=== PATIENT | male | born 1945 | race Caucasian/White ===

== ENCOUNTER 2024-11-29 07:39 | Outpatient (CLI) | payer OTHER, SELFPAY ==
--- OUTSIDE RECORDS SUMMARY | 2024-11-01 13:45 | XMS_ITS | Encounter Summary ---
Author Organization [facility] Address [address] [place] [address] Care Team Providers Care Iron Erector Name Role Phone Unavailable Primary Care Provider Unavailabl e Reason for Referral * Outpatient (Routine) - Authorized Specialty Diagnoses / Procedures Referred By Rafael menchaca Referred To Contact Ophthalmology Liu Noonan M.D. [address] [place] [phone] Phone: tel: fax: [facility] Referral ID Status Reason Start Date Expiration Date V isits Requested Visits Authorized [id number] Authorized 11/01/2024 05/03/2026 1 1 Scheduling Instructions [facility] return in about 4-6 months Reason for Visit * Outpatient (Routine) - Closed Specialty Diagnoses / Procedures Referred By Rafael menchaca Referred To Contact Ophthalmology Liu Noonan M.D. [address] [place] [phone] Phone: tel: fax: [facility] Referral ID Status Reason Start Date Expiration Date Visits Re quested Visits Authorized [id number] Closed 08/16/2024 02/15/2026 1 1 Encounter Details Date Type Department Care Team (Latest Contact Info) Description 11/01/2024 1:45 PM CDT Office Visit Department of Ophthalmology in [place], [place] [address] [place] [phone] Liu Noonan M.D. 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 - 11/01/2024 1:45 PM CDT # ABMD, both eyes Status post debridement, left eye (09/09/2024) Doing well. # pseudophakia, both eyes Dr. 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 Kraft Rtn 4-6 mo documented in this encounter Plan of Treatment Scheduled Referrals Name Type Priority Associated Diagnoses Order Schedule Ophthalmology office visit (clinic): Self; General Outpatient Referral Routine Expected: 03/04/2025 (Approximate), Expires: 02/01/2026 documented as of this encounter Visit Diagnoses Diagnosis Other Hereditary Corneal Dystrophies Bilateral- Primary documented in this encounter
--- OUTSIDE RECORDS SUMMARY | 2024-11-01 13:45 | XMS_ITS | Encounter Summary ---
Author Organization [facility] Address [address] [place] [address] Care Team Providers Care Cotton Picker Operator Name Role Phone Unavailable Primary Care Provider Unavailabl e Reason for Referral * Outpatient (Routine) - Authorized Specialty Diagnoses / Procedures Referred By Rafael menchaca Referred To Contact Ophthalmology Liu Noonan M.D. [address] [place] [phone] Phone: tel: fax: [facility] Referral ID Status Reason Start Date Expiration Date V isits Requested Visits Authorized [id number] Authorized 11/01/2024 05/03/2026 1 1 Scheduling Instructions [facility] return in about 4-6 months Reason for Visit * Outpatient (Routine) - Closed Specialty Diagnoses / Procedures Referred By Rafael menchaca Referred To Contact Ophthalmology Liu Noonan M.D. [address] [place] [phone] Phone: tel: fax: [facility] Referral ID Status Reason Start Date Expiration Date Visits Re quested Visits Authorized [id number] Closed 08/16/2024 02/15/2026 1 1 Encounter Details Date Type Department Care Team (Latest Contact Info) Description 11/01/2024 1:45 PM CDT Office Visit Department of Ophthalmology in [place], [place] [address] [place] [phone] Liu Noonan M.D. 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 - 11/01/2024 1:45 PM CDT # ABMD, both eyes Status post debridement, left eye (09/09/2024) Doing well. # pseudophakia, both eyes Dr. 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
--- OUTSIDE RECORDS SUMMARY | 2024-11-18 11:25 | XMS_ITS | Encounter Summary ---
Author Organization [facility] Address [address] [place] [address] Care Team Providers Care Supervisor Assembling Name Role Phone Unavailable Primary Care Provider Unavailabl e Encounter Details Date Type Department Care Team (Latest Contact Info) Description 11/18/2024 11:25 AM CDT - 11/18/2024 11:59 PM CDT Hospital Encounter Department of Laboratory Medicine in [place], [place] [address] [place] [phone] Alyson Drake P.A.-C., M.S. 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 07/24/2019 amLODIPine (NORVASC) 5 mg tablet 5 mg daily. 04/07/2021 ammonium lactate (AMLACTIN) 12 % cream as needed. 04/19/[address] tablet Take 81 mg by mouth daily. 06/11/2019 atorvastatin (LIPITOR) 40 mg tablet 40 mg daily. 04/15/2020 carboxymethylcel lulose (REFRESH PLUS) 0.5 % ophthalmic solution Administer 2 drops into both eyes 4 (four) times a day as needed. cephalexin (KEFLEX) 500 mg capsule 05/18/2021 clopidogreL (PLAVIX) 75 mg tablet 12/01/2020 hydroCHLOROthiaz greer (HYDRODIURIL) 25 mg tablet 04/15/2020 hydrOXYzine (ATARAX) 50 mg tablet 11/14/2021 levoFLOXacin (LEVAQUIN) 500 mg tablet 11/12/2020 lisinopriL (PRINIVIL,ZESTRI L) 40 mg tablet 40 mg daily. 04/15/2020 metoprolol succinate (TOPROL-XL) 25 mg 24 hr tablet 25 mg daily. 03/07/2022 pantoprazole (PROTONIX) 40 mg EC tablet 40 mg daily. 03/07/2022 phenazopyridine (PYRIDIUM) 100 mg tablet Take 1-2 tablets (100-200 mg total) by mouth 3 (three) times a day as needed for painful urination. 30 tablet 05/26/2021 polyethylene glycol-electroly froy (GaviLyte-G) 236-22.74-6.74 -5.86 gram solution 08/23/2023 polyethylene glycol-electroly froy (NULYTELY) 420 gram solution 10/07/2021 polymyxin B-trimethoprim (Polytrim) 10,000 unit- 1 mg/mL ophthalmic solution Administer 1 drop into the left eye 4 (four) times a day. sars-cov-2, COVID-19 - MODERNA, vaccine 10/16/2021 sennosides (SENOKOT) 8.6 mg tablet Take 8.6-17.2 mg by mouth. 10/22/2020 sodium chloride (CHOLO-128) 5 % ophthalmic ointment Apply 1 strip to affected eye(s) as needed. tamsulosin (FLOMAX) 0.4 mg 24 hr capsule Take 1 capsule (0.4 mg total) by mouth daily. 30 capsule 1 05/11/2021 traMADoL (ULTRAM) 50 mg tablet 11/14/2021 traMADoL (Ultram) 50 mg tabletIndication s:Acute Pain Take 1 tablet (50 mg total) by mouth every 6 (six) hours as needed for pain Indications: Acute Pain. 10 tablet 09/09/2024 documented as of this encounter Plan of Treatment Not on file documented as of this encounter Procedures Procedure Name Priority Date/Time Associated Diagnosis Comments PROSTATE-SPECIFIC AG (PSA) DIAGNOSTIC, S Routine 11/18/2024 11:31 AM CDT Primary Malignant Neoplasm Of Prostate (HCC) documented in this encounter Results * PSA (Prostate-Specific Antigen), Diagnostic (11/18/2024 11:31 AM CDT) Prostate-Specific Ag 0.17 <=6.5 ng/mL 11/18/2024 1:55 PM CDT OWAT Comment: ----ADDITIONAL INFORMATION---- The testing method is an electrochemiluminescence assay manufactured by [employer] and performed on the Modular or Addison system. Values obtained with different assay methods or kits may be different and cannot be used interchangeably. Test results cannot be interpreted as absolute evidence for the presence or absence of malignant disease. Blood (Blood, Venous) 11/18/2024 11:31 AM CDT 11/18/2024 1:15 PM CDT Alyson Drake P.A.-C., M.S. LAB BLOOD ADD-ON Final Result [facility] [address] [place] [address], [place] OWAT [facility] in [place] [address] [place] [address] documented in this encounter Visit Diagnoses Diagnosis Primary Malignant Neoplasm Of Prostate (HCC) documented in this encounter
--- OUTSIDE RECORDS SUMMARY | 2024-11-18 11:25 | XMS_ITS | Encounter Summary ---
Author Organization [facility] Address [address] [place] [address] Care Team Providers Care Auricular Acupuncturist Name Role Phone Unavailable Primary Care Provider Unavailabl e Encounter Details Date Type Department Care Team (Latest Contact Info) Description 11/18/2024 11:25 AM CDT - 11/18/2024 11:59 PM CDT Hospital Encounter Department of Laboratory Medicine in [place], [place] [address] [place] [phone] Alyson Drake P.A.-C., M.S. 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 LAB BLOOD ADD-ON Final Result [facility] [address] [place] [address], [place] OWAT [facility] in [place] [address] [place] [address] documented in this encounter Visit Diagnoses Diagnosis Primary Malignant Neoplasm Of Prostate (HCC) documented in this encounter
--- OUTSIDE RECORDS SUMMARY | 2024-11-29 07:51 | XMS_ITS | Continuity of Care Document ---
Author Name [facility] Organization [facility] Care Team Providers Care Correspondence Transcriber Name Role Phone [facility] Unavailable Unavailable Medications Combined list of outpatient medications from Department of Defense and Veterans Affairs facilities.Medications provided include 1) outpatient medications from the last 15 months, and 2) patient-reported medications. Medication Details Route Status Patient Instructions Prescription Expires Prescription Number Last Dispense Date Ordering Provider Order Date Order Qty Source CLOPIDOGREL (CLOPIDOGRE L BISULFATE), 75 MG, TABLET, ORAL, [facility], 500 ea. BOTTLE Active [id number] 4 2023 90 Pharmac y Data Transac tion Service Facilit y METOPROLOL SUCCINATE (metoprolol succinate), 50 MG, TAB ER 24H, ORAL, [facility], 500 ea. BOTTLE Active [id number] 4 2023 90 Pharmac y Data Transac tion Service Facilit y PREDNISOLON E ACETATE (PREDNISOLO NE ACETATE), 1%, DROPS SUSP, OPHTHALMIC, [facility]E [facility], 5 ml DROP BTL Active [id number] 4 2023 10 Pharmac y Data Transac tion Service Facilit y Immunizations Combined list of available immunizations from the Department of Defense and Veterans Affairs facilities. Immunization Series Date Given Administered By Site Reaction Lot Number CVX Code Drug Health Care Legal Assistant Status Comments Source COVID-19, mRNA, LNP-S, PF, 100 mcg or 50 mcg dose 2021 LALITA GOMES () Not Given COVID-19, mRNA, LNP-S, PF, 100 mcg or 50 mcg dose DoD Social History Combined list of available smoking, tobacco, and other social history from Department of Defense and Veterans Affairs facilities. Social History Type Response Date Comment Sour e This section is an empty social history section. DoD
--- OUTSIDE RECORDS SUMMARY | 2024-11-29 07:51 | XMS_ITS | Continuity of Care Document ---
Author Name [facility] Organization [facility] Care Team Providers Care Chart Snatcher Name Role Phone [facility] Unavailable Unavailable Medications Combined list of outpatient [...] ORAL, [facility], 500 ea. BOTTLE Active [id number] 4 2023 90 Pharmac y Data Transac tion Service Facilit y METOPROLOL SUCCINATE (metoprolol succinate), 50 MG, TAB ER 24H, ORAL, [facility], 500 ea. BOTTLE Active [id number] 4 2023 90 Pharmac y Data Transac tion Service Facilit y PREDNISOLON E ACETATE (PREDNISOLO NE ACETATE), 1%, DROPS SUSP, OPHTHALMIC, MANE [facility]ARM, 5 ml DROP BTL Active [id number] 4 2023 10 Pharmac y Data Transac tion Service Facilit y Immunizations Combined list of available immunizations from the Department of Defense and Veterans Affairs facilities. Immunization Series Date Given Administered By Site Reaction Lot Number CVX Code Drug Industrial Psychology Professor Status Comments Source COVID-19, mRNA, LNP-S, PF, [...]
--- OUTSIDE RECORDS SUMMARY | 2024-11-29 07:51 | XMS_ITS | Continuity of Care Document ---
Author Name [facility] Organization [facility] Care Team Providers Care Roll Forming Supervisor Name Role Phone [facility] Unavailable Unavailable Medications Combined list of outpatient [...] ORAL, [facility], 500 ea. BOTTLE Active [id number] 4 2023 90 Pharmac y Data Transac tion Service Facilit y METOPROLOL SUCCINATE (metoprolol succinate), 50 MG, TAB ER 24H, ORAL, [facility], 500 ea. BOTTLE Active [id number] 4 2023 90 Pharmac y Data Transac tion Service Facilit y PREDNISOLON E ACETATE (PREDNISOLO NE ACETATE), 1%, DROPS SUSP, OPHTHALMIC, MANE PHARM, 5 ml DROP BTL Active [id number] 4 2023 10 Pharmac y Data Transac tion Service Facilit y Immunizations Combined list of available immunizations from the Department of Defense and Veterans Affairs facilities. Immunization Series Date Given Administered By Site Reaction Lot Number CVX Code Drug Camp Advisor Status Comments Source COVID-19, mRNA, LNP-S, PF, [...]
--- OUTSIDE RECORDS SUMMARY | 2024-11-29 07:51 | XMS_ITS | Continuity of Care Document ---
Author Name [facility] Organization [facility] Care Team Providers Care Rental Agent Name Role Phone [facility] Unavailable Unavailable Medications Combined list of outpatient [...] ORAL, AUROBINDO PHARM, 500 ea. BOTTLE Active [id number] 4 2023 90 Pharmac y Data Transac tion Service Facilit y METOPROLOL SUCCINATE (metoprolol succinate), 50 MG, TAB ER 24H, ORAL, [facility], 500 ea. BOTTLE Active [id number] 4 2023 90 Pharmac y Data Transac tion Service Facilit y PREDNISOLON E ACETATE (PREDNISOLO NE ACETATE), 1%, DROPS SUSP, OPHTHALMIC, MANE PHARM, 5 ml DROP BTL Active [id number] 4 2023 10 Pharmac y Data Transac tion Service Facilit y Immunizations Combined list of available immunizations from the Department of Defense and Veterans Affairs facilities. Immunization Series Date Given Administered By Site Reaction Lot Number CVX Code Drug Kiln Operator Helper Status Comments Source COVID-19, mRNA, LNP-S, PF, [...]
--- OUTSIDE RECORDS SUMMARY | 2024-11-29 07:51 | XMS_ITS | Continuity of Care Document ---
Author Name [facility] Organization [facility] Care Team Providers Care Publications Editor Name Role Phone [facility] Unavailable Unavailable Medications Combined list of outpatient [...] ORAL, [facility]UROB[facility]O PHARM, 500 ea. BOTTLE Active [id number] 4 2023 90 Pharmac y Data Transac tion Service Facilit y METOPROLOL SUCCINATE (metoprolol succinate), 50 MG, TAB ER 24H, ORAL, [facility], 500 ea. BOTTLE Active [id number] 4 2023 90 Pharmac y Data Transac tion Service Facilit y PREDNISOLON E ACETATE (PREDNISOLO NE ACETATE), 1%, DROPS SUSP, OPHTHALMIC, MANE PHARM, 5 ml DROP BTL Active [id number] 4 2023 10 Pharmac y Data Transac tion Service Facilit y Immunizations Combined list of available immunizations from the Department of Defense and Veterans Affairs facilities. Immunization Series Date Given Administered By Site Reaction Lot Number CVX Code Drug Insole Coverer Status Comments Source COVID-19, mRNA, LNP-S, PF, [...]
--- OUTSIDE RECORDS SUMMARY | 2024-11-29 07:56 | XMS_ITS | CCD ---
Author Name Interface, [id number] lity Address [address] [place] [address] [facility] Address [address] [place] [address] Care Team Providers Care Home Companion Name Role Phone Hernandez Mckeon Unavailable Unavailable Reason for Visit NEW PT CONSULT 60 MIN Social History Date Name Value Sex Male
--- OUTSIDE RECORDS SUMMARY | 2024-11-29 07:56 | XMS_ITS | Clinical Summary ---
Author Organization [facility] Address [address] [place] [address] Care Team Providers Care Shellfish Manager Name Role Phone Unavailable Primary Care Provider Unavailabl e Source Comments Patient records contain information from all sites at [facility]. For routine questions regarding patient records, call [phone] during business hours, M-F 8:00 AM - 5:00 PM Central Time. Record requests for emergency care only can be directed to [phone] at any time.[facility] Allergies Active Allergy Reactions Criticality Noted Date Comments 2-Ethylhexyl Acrylate Other (see comments) 10/03 Sulfa (Sulfonamide Antibiotics) Itching,Rash Medications acetaminophen (TYLENOL) 325 mg tablet Take 650 mg by mouth as needed. 0 Active amLODIPine (NORVASC) 5 mg tablet 5 mg daily. 1 Active aspirin [address] tablet Take 81 mg by mouth daily. 0 Active atorvastatin (LIPITOR) 40 mg tablet 40 mg daily. 0 Active carboxymethylce llulose (REFRESH PLUS) 0.5 % ophthalmic solution Administer 2 drops into both eyes 4 (four) times a day as needed. Active hydroCHLOROthia zide (HYDRODIURIL) 25 mg tablet 0 Active clopidogreL (PLAVIX) 75 mg tablet 1 Active levoFLOXacin (LEVAQUIN) 500 mg tablet 1 Active lisinopriL (PRINIVIL,ZESTR IL) 40 mg tablet 40 mg daily. 0 Active sodium chloride (CHOLO-128) 5 % ophthalmic ointment Apply 1 strip to affected eye(s) as needed. Active sennosides (SENOKOT) 8.6 mg tablet Take 8.6-17.2 mg by mouth. 1 Active ammonium lactate (AMLACTIN) 12 % cream as needed. 1 Active tamsulosin (FLOMAX) 0.4 mg 24 hr capsule Take 1 capsule (0.4 mg total) by mouth daily. 30 capsule 1 1 Active phenazopyridine (PYRIDIUM) 100 mg tablet Take 1-2 tablets (100-200 mg total) by mouth 3 (three) times a day as needed for painful urination. 30 tablet 1 Active sars-cov-2, COVID-19 - MODERNA, vaccine 2 Active hydrOXYzine (ATARAX) 50 mg tablet 2 Active metoprolol succinate (TOPROL-XL) 25 mg 24 hr tablet 25 mg daily. 2 Active pantoprazole (PROTONIX) 40 mg EC tablet 40 mg daily. 2 Active polyethylene glycol-electrol ytes (NULYTELY) 420 gram solution 2 Active traMADoL (ULTRAM) 50 mg tablet 2 Active cephalexin (KEFLEX) 500 mg capsule 1 Active polyethylene glycol-electrol ytes (GaviLyte-G) 236-22.74-6.74 -5.86 gram solution 4 Active polymyxin B-trimethoprim (Polytrim) 10,000 unit- 1 mg/mL ophthalmic solution Administer 1 drop into the left eye 4 (four) times a day. Active traMADoL (Ultram) 50 mg tabletIndicatio ns:Acute Pain Take 1 tablet (50 mg total) by mouth every 6 (six) hours as needed for pain Indications: Acute Pain. 10 tablet 5 Active Active Problems Problem Noted Date Diagnosed Date Primary Malignant Neoplasm Of Prostate 1 Cancer Staging:Clinical stage from 02/11/2021:Stage IIB(cT1c, cN0, cM0, PSA: 4.8, Grade Group: 2) - Unsigned Encounters Date Type Department Care Team Description 11/19/2024 Results Follow-Up Department of Radiation Oncology in [address] [address] Milo Del Castillo R.N. PSA (Prostate-Specific Antigen), Diagnostic 11/18/2024 11:25 AM CDT - 11/18/2024 11:59 PM CDT Hospital Encounter Department of Laboratory Medicine [address] [place] [address] Alyson Drake P.A.-C., M.S. Primary Malignant Neoplasm Of Prostate (HCC) Discharge Disposition: Home or Self Care 11/01/2024 1:45 PM CDT Office Visit Department of Ophthalmology in [address] [address] Liu Noonan M.D. Other Hereditary Corneal Dystrophies Bilateral (Primary Dx) 09/20/2024 Documentation Department of Ophthalmology in [address] [address] Liu Noonan M.D. 09/20/2024 Clinical Communication Department of Ophthalmology in [address] [address] Liu Noonan M.D. 09/13/2024 1:45 PM CDT Office Visit Department of Ophthalmology in [address] [address] Liu Noonan M.D. Other Hereditary Corneal Dystrophies Bilateral (Primary Dx) 09/10/2024 10:00 AM CDT Office Visit Department of Ophthalmology in [address] [address] Liu Noonan M.D. Other Hereditary Corneal Dystrophies Bilateral (Primary Dx) 09/09/2024 11:15 AM CDT Office Visit Department of Ophthalmology in [address] [address] Liu Noonan M.D. 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 Social History Tobacco Use Types Packs/Day Years Used Date Smoking Tobacco: Former Cigarettes Q uit: 2010 Smokeless Tobacco: Never Tobacco Cessation:Counseling Given: Not Answered Sex and Gender Information Value Date Recorded Sex Assigned at Not on file Legal Sex Male 11:15 AM LIGHTING ADVISER Gender Identity Not on file Sexual Orientation Not on file Last Filed Vital Signs Vital Sign Reading Time Taken Comments Blood Pressure 125/42 05/20/2024 3:24 PM LIGHTING ADVISER Pulse 83 05/20/2024 3:24 PM LIGHTING ADVISER Temperature 36.5 C (97.7 F) 05/20/2024 3:24 PM LIGHTING ADVISER Respiratory Rate - - Oxygen Saturation - - Inhaled Oxygen Concentration - - Weight 97.5 kg (214 lb 15.2 oz) 05/20/2024 3:24 PM LIGHTING ADVISER Height - - Body Mass Index - - Plan of Treatment Health Maintenance Due Date Last Done Comments Hepatitis C Screening 1945 Zoster Vaccines (2 of 3) 06/22/2011 04/27/2011 RSV vaccine - (32-36 weeks) or 60+ years (1 - 1-dose 75+ series) 2021 DTaP,Tdap,and Td Vaccines (2 - Td or Tdap) 04/10/2024 04/10/2014, 06/16/2003 Depression Screening (Annual PHQ-2) 06/05/2024 Fall Risk Screen (Annual) 06/05/2024 Creatinine Level (Kidney Function Test) 09/16/2025 09/16/2024, 09/16/2024, 06/14/2024, Additional history exists Potassium Level 09/16/2025 09/16/2024, 06/05, 06/12/2024, Additional history exists Sodium Level 09/16/2025 09/16/2024, 06/05, 06/12/2024, Additional history exists Pneumococcal vaccine (50+ years) Completed 04/13/2015, 04/27/2011 Colonoscopy Discontinued 10/16/2023, 12/01/2021 Colorectal Cancer Screening Discontinued Influenza Vaccine Completed 03/21/2024, , 04/05/2022, Additional history exists COVID-19 Vaccine Completed 09/24/2024, , 09/07/2023, Additional history exists CT Colonography Discontinued Cologuard Discontinued FIT Discontinued HPV Vaccines Aged Out No longer eligi ble based on patient's age to complete this topic IPV Vaccines Aged Out No longer eligi ble based on patient's age to complete this topic Medical Devices Implanted Type Area Import/Export Clerk Device Identifier Shelf Expiration Date Model / Serial / Lot Cardiac Other Cardiac Other N/A: Heart Description:Pacemaker Vascular Stent Vascular Stent Right: Groin Vascular Stent Vascular Stent N/A: Abdomen Procedures Procedure Name Priority Date/Time Associated Diagnosis Comments PROSTATE-SPECIFIC AG (PSA) DIAGNOSTIC, S Routine 11/18/2024 11:31 AM CDT Primary Malignant Neoplasm Of Prostate (HCC) REMOVE CORNEAL EPITHELIUM - OS - LEFT EYE Routine 09/09/2024 11:30 AM CDT Other Hereditary Corneal Dystrophies Bilateral from Last 3 Months Results * PSA (Prostate-Specific Antigen), Diagnostic (11/18/2024 [...] P.A.-C., M.S. LAB BLOOD ADD-ON Final Result [facility] [address] [place] [address], [facility] in [place] [address] [place] [address] * Remove Corneal Epithelium - OS - Left Eye (09/09/2024 11:30 AM CDT) Narrative OPHTHALMOLGY NON-IMAGING ORDERS - 09/09/2024 11:30 AM CDT Confirmed correct patient, procedure, site, and patient consented. Notes The correct procedure and laterality were confirmed. After placement of a lid speculum, the central 8-9 mm of corneal epithelium were debrided with a 64 blade at the slit lamp. Redundant basement membrane was peeled with forceps. The corneal stroma was polished with WeckCell sponges. An Air Optix N&D 8.6 contact lens soaked in Polytrim solution was placed. The patient tolerated the procedure well. us Liu Noonan M.D. OPH CLINIC PROCEDURES Edit ed Result - Final [facility] OPHTHALMOLGY NON-IMAGING ORDERS from Last 3 Months Insurance MEDICARE [employer]
--- OUTSIDE RECORDS SUMMARY | 2024-11-29 07:56 | XMS_ITS ---
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 Past Treatment and Therapy Plans No past plan information found. Past Radiation Episodes * IMRT: ProstateOverview* First Treatment Date Last Treatment Date Treatment Site Technique Goal Episode Provider 05/03/2021 05/31/2021 Prostate IMRT Curative * Linked Problems Primary Malignant Neoplasm O f Prostate Treatment Courses* Course 1x Prostate 05/03/2021 - 05/31/2021 Treatment Period Fraction Dose Fractions Total Dose Plans Planned F1 prostate 05/03/2021 - 05/31/2021 300 cGy 20 / 20 6,000 cGy Reference Points Delivered [id number] 05/03/2021 - 05/31/2021 6,000 cGy
--- OUTSIDE RECORDS SUMMARY | 2024-11-29 07:56 | XMS_ITS | Encounter Summary ---
Author Organization [facility] Address [address] [place] [address] Care Team Providers Care Public Welfare Worker Name Role Phone Unavailable Primary Care Provider Unavailabl e Encounter Details Date Type Department Care Team (Latest Contact Info) Description 09/20/2024 Clinical Communication Department of Ophthalmology in [place], [place] [address] [place] [address] Liu Noonan M.D. 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
--- OUTSIDE RECORDS SUMMARY | 2024-11-29 07:56 | XMS_ITS | Clinical Summary ---
Author Organization [facility] Address [address] [facility] [place] [address] Care Team Providers Care Motorcycle Deliverer Name Role Phone Satish Issa Primary Care Provider [phone] Allergies Active Allergy Reactions Criticality Noted Date Comments Sulfa Antibiotics Itching,Rash Low 06/06/2006 Medications acetaminophen (TYLENOL) 650 MG CR tablet Take 650 mg by mouth every 8 hours as needed 10/22/2022 Active clopidogrel (PLAVIX) 75 MG tablet Take 75 mg by mouth daily 09/14/2023 Active atorvastatin (LIPITOR) 40 MG tablet Take 40 mg by mouth daily 03/07/2023 Active pantoprazole (PROTONIX) 40 MG EC tablet Take 40 mg by mouth 2 times daily 03/07/2022 Active metoprolol succinate ER (TOPROL XL) 50 MG 24 hr tablet Take 1 tablet by mouth daily 11/09/2022 Active amLODIPine (NORVASC) 5 MG tablet Take 1 tablet by mouth daily 03/07/2023 Active lisinopril (ZESTRIL) 40 MG tablet Take 1 tablet by mouth daily 03/07/2023 Active sodium chloride (CHOLO 128) 5 % ophthalmic ointment Apply 1 strip to eye 2 times daily Active carboxymethylcel lulose (CARBOXYMETHYLCE LLULOSE SODIUM) 0.5 % SOLN ophthalmic solution Place 2 drops into both eyes daily as needed Active aspirin 81 MG EC tablet Take 81 mg by mouth daily Active prednisoLONE acetate (PRED FORTE) 1 % ophthalmic suspension Place 1 drop into both eyes daily Active Active Problems No known active problems Social History Tobacco Use Types Packs/Day Years Used Date Smoking Tobacco: Former Cigarettes Smokeless Tobacco: Never Tobacco Cessation:Counseling Given: Not Answered Comments:Quit 2009 Alcohol Use Standard Drinks/Week Comments Yes 0 (1 standard drink = 0.6 oz pure alcohol) 8-10 drinks per week. None in past month. Adolescent Education Answer Date Record ed Getting School Help Needed Not on file 10/15 Sex and Gender Information Value Date Recorded Sex Assigned at Not on file Legal Sex Male 12:46 PM CDT Gender Identity Not on file Sexual Orientation Not on file Last Filed Vital Signs Vital Sign Reading Time Taken Comments Blood Pressure 133/48 10/16/2023 10:30 AM CDT Pulse 61 10/16/2023 10:30 AM CDT Temperature 36 C (96.8 F) 10/16/2023 9:44 AM CDT Respiratory Rate 18 10/16/2023 7:59 AM CDT Oxygen Saturation 97% 10/16/2023 10:30 AM CDT Inhaled Oxygen Concentration - - Weight 93.5 kg (206 lb 3.2 oz) 10/16/2023 7:59 A M CDT Height - - Body Mass Index - - Plan of Treatment Health Maintenance Due Date Last Done Comments ADVANCE CARE PLANNING 1945 ANNUAL REVIEW OF HM ORDERS 1945 DIABETES SCREENING 1945 LIPID 1945 FALL RISK ASSESSMENT 2011 ZOSTER VACCINE (2 of 3) 06/22/2011 04/27/2011 RSV VACCINE (1 - 1-dose 75+ series) 2021 MEDICARE ANNUAL WELLNESS VISIT 04/07/2022 04/07/2021, 04/15/2020 COVID-19 VACCINE ( season) 2024 09/07/2023, 03/30/2023, 03/16/2022, Additional history exists DTAP/TDAP/TD VACCINE (2 - Td or Tdap) 04/10/2024 04/10/2014, 06/16/2003 PHQ-2 (once per calendar year) 2024 LUNG CANCER SCREENING 11/20/2024 11/21/2023 , 06/12/2019, 04/30/2019 INFLUENZA VACCINE (Season Ended) 2025 05/26/2023, 04/05/2022, 03/04/2021, Additional history exists HEPATITIS C SCREENING Completed 06/24/2013 PNEUMOCOCCAL VACCINE 50+ YEARS Completed 04/13/2015, 04/27/2011 HPV VACCINE Aged Out No longer eligi ble based on patient's age to complete this topic MENINGITIS VACCINE Aged Out No longer eligible based on patient's age to complete this topic Insurance MEDICARE / MEDICARE / Care Teams Motorcycle Deliverer Relationship Specialty Start Date End Date Satish Issa [address] [place] [address] PCP - General Family Medicine 10/16/23
--- OUTSIDE RECORDS SUMMARY | 2024-11-29 07:56 | XMS_ITS | Encounter Summary ---
Author Organization [facility] Address [address] [place] [address] Care Team Providers Care Ortho Rn Name Role Phone Unavailable Primary Care Provider Unavailabl e Encounter Details Date Type Department Care Team (Late st Contact Info) Description 11/19/2024 Results Follow-Up Department of Radiation Oncology in [place], [place] [address] [place] [phone] Milo Del Castillo, R.N. 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
--- OUTSIDE RECORDS SUMMARY | 2024-11-29 07:56 | XMS_ITS | Clinical Summary ---
Author Organization [facility] Address [address] [place] [id number] Care Team Providers Care Printed Circuit [employer] Panels Deburrer Name Role Phone Satish Issa MD Primary Care Provider Lucinda Toure MD Unavailable [phone] Ирина Monreal NP Unavailable Maria De Jesus Adorno RN, BSN Unavailable Unavailab Mundo Palmer MD Unavailable [phone] Allergies Active Allergy Reactions Criticality Noted Date Comments 2-Ethylhexyl Acrylate *Unknown 10/13/2007 Other reaction(s): Other (see comments) Sulfa (Sulfonamide Antibiotics) Rash,Itching 06/06/2006 Medications carboxymethylcell ulose 0.5% 0.5 % drop ophthalmic drops Place 1-2 Drops into both eyes every 2 hours if needed for Dry Eyes. Active aspirin (ECOTRIN) 81 mg enteric coated tablet Take 81 mg by mouth with dinner. 0 0 Active amLODIPine (NORVASC) 10 mg tabletIndications :HTN (hypertension) Take 1 Tablet (10 mg) by mouth once daily. 90 Tablet 3 4 Active atorvastatin (LIPITOR) 40 mg tabletIndications :Cardiovascular symptoms Take 1 Tablet (40 mg) by mouth once daily with evening meal. 90 Tablet 3 4 Active lisinopriL (PRINIVIL; ZESTRIL) 40 mg tabletIndications :Essential hypertension Take 1 Tablet (40 mg) by mouth once daily. 90 Tablet 3 4 Active metoprolol succinate (TOPROL XL) 50 mg sustained-release tabletIndications :Cardiovascular symptoms,Arterios clerotic heart disease Take 1 Tablet (50 mg) by mouth once daily. 90 Tablet 4 4 Active pantoprazole (PROTONIX) 40 mg delayed-release tabletIndications :Duodenal ulcer Take 1 Tablet (40 mg) by mouth once daily before a meal. 90 Tablet 3 4 Active sodium chloride (CHOLO 128 OPHT) Place 1 Drop into the eye(s) three times daily. Active Active Problems Problem Noted Date Diagnosed Date Atrioventricular block, complete 04/09/2024 ISABEL (acute kidney injury) 11/14/2023 Primary cancer of right upper lobe of lung 05/18 Cancer Staging:Pathologic stage from 05/15/2023:Stage IA2(pT1b, pN0, cM0) - Signed by Stormy Valencia PA on 05/18/2023 Primary cancer of right lower lobe of lung 05/18 Cancer Staging:Pathologic stage from 05/15/2023:Stage IA1(pT1a, pN0, cM0) - Signed by Stormy Valencia PA on 05/18/2023 S/P right upper lobe and lower lobe wedge resect ion 05/15/2023 Overview (05/15/2023): S/P right upper lobe and lower lobe wedge resection and lymphadenectomy with Dr. Rodarte at [facility] on 05/15/23. 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 11/27/2020 PVD (peripheral vascular disease) 08/16/2019 Iron deficiency 08/16/2019 Lower GI bleed 08/16/2019 Melena 08/16/2019 Acute blood loss anemia 08/03/2019 Acute upper GI bleeding 08/03/2019 Acute renal failure superimp osed on stage 3 chronic kidney disease 08/03/2019 Leukocytosis 07/23/2019 AV block, Mobitz 1 04/23/2019 Duodenal ulcer 04/23/2019 Alcohol use 2019 Pleural effusion on right 2019 Anemia 2019 Acute on chronic renal failure 2019 Peripheral vascular disease 09/18/2018 PAD (peripheral artery disease) 09/18/2018 Overview (09/20/2018): S/p left common femoral endarterectomy and left femoral to above-knee popliteal artery bypass using 8 mm ringed PTFE on 09/18. 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 Tobacco use disorder 10/13/2007 Rheumatic heart disease, unspecified 09/30/2006 Overview (09/30/2006): aortic insufficiency moderate on echo 2006 CLL (chronic lymphocytic leukemia) Pacemaker Resolved Problems Problem Noted Date Diagnosed Date Resolved Date Hypotension 09/18/2018 07/23/2019 Unspecified essential hypertension 10/13/2007 01/24/2012 MGUS (monoclonal gammopathy of unknown significance) 07/23/2019 Encounters Date Type Department Care Team Description 11/29/2024 8:00 AM CDT Ancillary Procedure [facility] [address] [place] [address] Arrived 11/21/2024 11:30 AM CDT Office Visit [facility] [address] [place] [address] Martir Madera MD CV Vascular Est (1 year follow up; lower extremity PAD. U/S scheduled prior. ) 11/21/2024 9:42 AM CDT - 11/21/2024 11:59 PM CDT Hospital Encounter [facility] [address] [place] [address] Martir Madera MD Leistner, Joseph S, R.T. (ARRT) PAD (peripheral artery disease) 11/21/2024 Travel 11/15/2024 Telephone [facility] [address] [facility] [address] [facility] [place] [address] Chio Benjamin MD Appointment Request (Lab) 10/08/2024 Telephone [facility] [address] [place] [address] Martir Madera MD Follow Up 10/03/2024 9:53 AM CDT - 10/03/2024 11:59 PM CDT Hospital Encounter [facility] [address] [facility] [place] [address] Iron deficiency anemia due to chronic blood loss (Primary Dx) 10/03/2024 Travel 10/01/2024 Hospital/[facility] Telephone Encounter [facility] [address] [place] [address] Moraima Espinoza RN Pre Procedure (PVP) 09/27/2024 11:49 AM CDT - 09/27/2024 11:59 PM CDT Hospital Encounter [facility] [address] [facility] [place] [address] Iron deficiency anemia due to chronic blood loss (Primary Dx) 09/27/2024 Travel 09/20/2024 Hospital/[facility] Telephone Encounter [facility] [address] [facility] [address] Caryl Sepulveda RN Pre Procedure 09/19/2024 1:30 PM CDT Office Visit [facility] [address] [facility] [place] [address] Lucinda Toure MD Follow Up 09/19/[address] [facility] [address] [facility] [place] [address] [facility] Cancer Appointment 09/19/2024 Travel 09/16/2024 10:03 AM CDT - 09/16/2024 11:59 PM CDT Hospital Encounter [facility] [address] [place] [address] Ирина Monreal, STACKER AND SORTER OPERATOR Iron deficiency anemia due to chronic blood loss [D50.0]; Primary cancer of right upper lobe of lung (HC) 09/16/2024 10:03 AM CDT - 09/16/2024 11:59 PM CDT Hospital Encounter [facility] [address] [place] [address] Iron deficiency anemia due to chronic blood loss [D50.0]; MGUS (monoclonal gammopathy of unknown significance); Primary cancer of right upper lobe of lung (HC) 09/16/2024 Travel from Last 3 Months Immunizations Immunization Administration Dates Next Due COVID-19 vaccine (Moderna 100mcg/0.5mL) PF, MDV 08/15/2020,07/18/2020 Influenza A (H1N1), Inactiva ross (Age >=3 Years) 06/15/2009 Influenza, High-dose Inactivated 018,03/31/2016,04/13/2015,2013 Influenza, IIV3 (Age >=3 years) 05/07/20 13,02/15/2012,04/27/2011,2009,05/07/2009 Influenza, Inactivated AIIV4 (Age 65+ Years) Preserv Free 04/05/2022,03/04/2021,03/11/2020 Influenza, Inactivated IIV3 (Age 65+ Years) Preserv Free 04/23/2019,04/12/2017 Pneumococcal Poly,23-Valent (Pneumovax) 04/27/2011 Pneumococcal conj 13-Valent (Prevnar 13) 04/13/2015 Td (Age >=7 Years) 06/14/2003 Tdap 04/10/2014 Zoster (Zostavax-ZVL, live) 04/27/2011 Family History Medical History Relation Name Comments Hypertension Brother 1 Cancer-colon Brother 2 Diabetes Brother 3 Cancer Father esophageal canc er Diabetes Father Cancer-colon Mother ? OVARIAN Heart Disease Mother ASCVD Other Mother COPD Relation Name Status Comments Brother 1 Brother 2 Brother 3 Father Mother Social History Tobacco Use Types Packs/Day Years Used Date Smoking Tobacco: Former Cigarettes 0.8 35 0 09/03/1974 - 09/03/2009 Passive Smoke Exposure: Past Smokeless Tobacco: Never Tobacco Cessation:Counseling Given: Not Answered Alcohol Use Standard Drinks/Week Comments Yes 8 (1 standard drink = 0.6 oz pur e alcohol) Very occ PHQ-2 Answer Date Recorded PHQ-2 TOTAL SCORE 5 04/09/2024 Social Connections Answer Date Recorded Do you often feel lonely or isolated from those around you? 0 11/14/2023 Financial Resource Strain Answer Date R ecorded Difficulty of Paying Living Expenses 3 11/14/2023 Difficulty of Paying Living Expenses Not on file 11/14/2023 Food Insecurity Answer Date Recorded Do you worry your food will run out before you are able to buy more? 1 11/14/2023 Transportation Needs Answer Date Record ed Does lack of transportation keep you from medica l appointments? 1 11/14/2023 Does lack of transportation keep you from work, meetings or getting things that you need? 1 11/14/2023 Housing Stability Answer Date Recorded What is your housing situation today? 1 11/14/2023 Interpersonal Safety Answer Date Record ed Are you being hit, kicked, p ushed or yelled at (see row info)? No 06/14/2024 Interpersonal Safety Abuse 12 - 18 Not on file 06/14/2024 Interpersonal Safety Ambulatory Vulnerability No t on file 06/14/2024 Utilities Answer Date Recorded Do you have trouble paying f or utilities (for example, heat, electricity, water, phone)? 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 Gender Identity Not on file Sexual Orientation Not on file Occupation Industry Job Start Date Job End Date Not on file Not on file Not on file Not on file Obstetrics History Last Filed Vital Signs Vital Sign Reading Time Taken Comments Blood Pressure 157/81 11/21/2024 11:12 AM CDT Pulse 60 11/21/2024 11:12 AM CDT Temperature 36.9 C (98.4 F) 10/03/2024 9:58 AM CDT Respiratory Rate 18 10/03/2024 9:58 AM CDT Oxygen Saturation 97% 11/21/2024 11: 12 AM CDT Inhaled Oxygen Concentration - - Weight 92.9 kg (204 lb 11.2 oz) 025 11:12 AM CDT Height 180.3 cm (5' 10.98) 11/21/2024 11:12 AM CDT Body Mass Index 28.56 11/21/2024 11:12 AM CDT Plan of Treatment Upcoming Encounters Date Type Department Care Team (Late st Contact Info) Description 11/29/2024 8:00 AM CDT Ancillary Procedure [facility] [address] [place] [address] Arrived 12/12/2024 11:15 AM CDT Office Visit [address] [address] Chio Benjamin MD [address] [place] [address] 12/12/2024 12:00 PM CDT Appointment [facility] [address] [place] [address] 12/17/2024 12:45 PM CDT Office Visit [facility] [address] [place] [address] Ирина Monreal, STACKER AND SORTER OPERATOR [address] [place] [address] 03/12/2025 1:15 PM CDT Cardiac Device Check [facility] [address] [place] [address] Health Maintenance Due Date Last Done Comments Zoster (shingles) series for age 50+ (1 of 2) 06/22/2011 04/27/2011 RSV vaccine for adults or (1 - 1-dose 75+ series) 2021 Tetanus booster 04/10/2024 04/10/2014, 06/14/2003 COVID-19 vaccine series ( season) 2024 09/24/2024, 03/21/2024, 09/07/2023, Additional history exists Influenza Vaccine (Season Ended) 2025 04/05/2022, 03/04/2021, 03/11/2020, Additional history exists Depression screening for age 12+ 04/09/2025 04/09/2024, 04/28/2023, 04/26/2023, Additional history exists Medicare Wellness for age 65+ 04/10/2025 04/09/2024, 04/07/2021, 04/15/2020, Additional history exists Low Dose CT (for lung CA) age 50-80 09/16/2025 09/16/2024, 03/11/2024, 11/21/2023, Additional history exists BMI (ht and wt on same day) for age 18+ 11/21/2025 11/21/2024, 06/10/2024, 05/09/2024, Additional history exists Hepatitis C screening for age 18-79 Completed 06/24/2013 Tdap Completed 04/10/2014 Pneumococcal series for age 50+ Completed 04/13/2015, 04/27/2011 Hepatitis B series for 19+ Aged Out N o longer eligible based on patient's age to complete this topic Medical Devices Implanted Type Area Black And White Printer Operator Device Identifier Shelf Expiration Date Model / Serial / Lot Graft Vasc 8mm 40cm Propaten Thin Wall Removable Ring - [id number] Implanted:Qty: 1 on 09/18/2018 by Martir Madera MD at [facility] Cv Implants Left: Femoral Artery [employer] 12/12/2021 [id number]# / [id number] / Graft Vasc [id number] Hem[employer] - [id number] Implanted:Qty: 1 on 11/30/2020 by Martir Madera MD at [facility] Grafts Right: Femoral Artery [employer] 04/04/2025 [id number] / [id number] / [id number] Tissue Pericardium 0.8x8cm Xenosure - [id number] Implanted:Qty: 1 on 07/23/2019 by Martir Madera MD at [facility] Right: Femoral Artery [employer] 01/30/2025 [id number]# / / Procedures Procedure Name Priority Date/Time Associated Diagnosis Comments US ARTERIAL LOWER EXTREMITY W LIZANDRO BILATERAL Routine 11/21/2024 10:52 AM CDT PAD (peripheral artery disease) CT CHEST W Routine 09/16/2024 10:30 AM CDT Iron deficiency anemia due to chronic blood loss [D50.0] Primary cancer of right upper lobe of lung (HC) CREATININE,ISTAT Timed 09/16/2024 10:1 9 AM CDT CBC WITH AUTO DIFFERENTIAL Timed 09/16/2024 10:10 AM CDT Iron deficiency anemia due to chronic blood loss [D50.0] MGUS (monoclonal gammopathy of unknown significance) Primary cancer of right upper lobe of lung (HC) IGM Today 09/16/2024 10:10 AM CDT MGUS (monoclonal gammopathy of unknown significance) IRON PLUS IRON BINDING CAP Today 09/16/2024 10:10 AM CDT Iron deficiency anemia due to chronic blood loss [D50.0] FERRITIN Today 09/16/2024 10:10 AM CDT Iron deficiency anemia due to chronic blood loss [D50.0] PROTEIN ELP,SERUM Today 09/16/2024 10: 10 AM CDT MGUS (monoclonal gammopathy of unknown significance) COMP METABOLIC PANEL Today 09/16/2024 10:10 AM CDT Iron deficiency anemia due to chronic blood loss [D50.0] Primary cancer of right upper lobe of lung (HC) CBC WITH AUTO DIFFERENTIAL Today 09/16/2024 10:10 AM CDT Iron deficiency anemia due to chronic blood loss [D50.0] MGUS (monoclonal gammopathy of unknown significance) Primary cancer of right upper lobe of lung (HC) ANTI HCV Routine 06/24/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 Study performed: Lower extremity (bilateral), resting LIZANDRO, TBI, duplex US. Indication for study: Follow-up HEREDITARY CANCER PROGRAM COORDINATOR/stent/bypass Study Quality: Good TECHNIQUE: Lower/upper extremity arteries were examined per exam protocol by duplex ultrasound, color-flow and spectral Doppler. Peak systolic velocities (PSV), Doppler waveform quality, velocity ratios and vessel size in cm, were documented at protocol specific sites. Physiologic data including segmental pressures, ankle/brachial index (LIZANDRO), digit PPG recordings, laser Doppler flowmetry, transcutaneous oximetry, and digit temperatures were documented at sites per exam protocol and test requirements. IMPRESSION: 1. Toe-brachial index is moderately to severely reduced on the right at 0.34 and toe-brachial index is mildly reduced on the left at 0.52. 2. Left ankle/brachial index is noncompressible. 3. Right ankle/brachial index is noncompressible. 4. Resting ankle-brachial index on the right at 1.59 and on the left at 1.59. COMPARISON: Compared to prior study 05/30/2024, No high grade stenosis detected in the right interposition graft, but Tarvus Parvas waveform suggests proximal disease. FINDINGS: Noncompressible vessels bilaterally. Moderate to severe right TBI and mild left TBI. The right interposition graft appears to be patent. No high grade stenosis detected in the right interposition graft, but Tarvus Parvas waveform suggests proximal disease. The left Common Femoral to Popliteal artery bypass appears to be patent without stenosis. Right ankle/brachial index is noncompressible. Right toe/brachial index indicates moderate to severe range. Left ankle/brachial index is noncompressible. Left toe/brachial index indicates mild range. +--------+ + + RIGHT Velocity cm/s Phasicity +--------+ + + CONTROL ROOM HELPER PRX 66 monophasic +--------+ + + PFA 189 monophasic +--------+ + + SFA PRX 0 occluded +--------+ + + SFA MID 0 occluded +--------+ + + SFA DST 0 occluded +--------+ + + EMILY PRX 52 monophasic +--------+ + + EMILY DST 32 monophasic +--------+ + + HEREDITARY CANCER PROGRAM COORDINATOR DST 28 monophasic +--------+ + + HAMLET DST 17 monophasic +--------+ + + DPA 43 monophasic +--------+ + + +--------+ + + LEFT Velocity cm/s Phasicity +--------+ + + CONTROL ROOM HELPER PRX 264 multiphasic +--------+ + + CONTROL ROOM HELPER DST 195 multiphasic +--------+ + + PFA 167 multiphasic +--------+ + + EMILY DST 104 multiphasic +--------+ + + HEREDITARY CANCER PROGRAM COORDINATOR DST 86 multiphasic +--------+ + + HAMLET DST 17 monophasic +--------+ + + DPA 55 multiphasic +--------+ + + Criteria: Stenosis V. Ratio Mild <50% <2.0 Moderate 50-74% > or = 2.0 Severe 75-99% > or = 4.0 Occluded 100% no detectable flow Pressures +-----+ +--------+ +-----+ RIGHT (mmHg) LEFT (mmHg) +-----+ +--------+ +-----+ Index 160 Brachial 88 Index +-----+ +--------+ +-----+ 0.72 116 HEREDITARY CANCER PROGRAM COORDINATOR 255 1.59 +-----+ +--------+ +-----+ 1.59 255 DPA 255 1.59 +-----+ +--------+ +-----+ 0.34 55 Digit 1 84 0.52 +-----+ +--------+ +-----+ BYPASS GRAFT Right graft type: Interpos CONTROL ROOM HELPER -PFA. +---------+ + +--------+-----+ RIGHT Velocity cm/s Phasicity Stenosis Ratio +---------+ + +--------+-----+ INFLOW 66 monophasic +---------+ + +--------+-----+ PRX ANAST 62 monophasic +---------+ + +--------+-----+ PRX GRAFT 84 monophasic +---------+ + +--------+-----+ MID GRAFT 68 monophasic +---------+ + +--------+-----+ DST GRAFT 52 monophasic +---------+ + +--------+-----+ DST ANAST 66 monophasic +---------+ + +--------+-----+ OUTLFOW 63 monophasic +---------+ + +--------+-----+ Left graft type: CONTROL ROOM HELPER-POP A. +---------+ + +--------+-----+ LEFT Velocity cm/s Phasicity Stenosis Ratio +---------+ + +--------+-----+ INFLOW 195 multiphasic +---------+ + +--------+-----+ PRX ANAST 147 multiphasic +---------+ + +--------+-----+ PRX GRAFT 77 multiphasic +---------+ + +--------+-----+ MID GRAFT 82 multiphasic +---------+ + +--------+-----+ DST GRAFT 64 multiphasic +---------+ + +--------+-----+ DST ANAST 125 multiphasic +---------+ + +--------+-----+ OUTFLOW 104 multiphasic +---------+ + +--------+-----+ Eric Demarco MD. Electronically signed on 11/21/2024 4:47:48 PM This study was performed and interpreted by a service accredited by the Intersocietal Accreditation Commission (IAC/Vascular), [email or web address]/vascular Report generated by [employer]. Final Procedure Note Eric Demarco MD - 11/21/2024 VASCULAR ULTRASOUND REPORT [place] HERMAN : 1945 Study Date: 11/21/2024 9:52:08 AM Age: 79 years Tech: MANN Gender: M Referring MD: MARTIR MADERA Site: [facility] Study performed: Lower extremity (bilateral), resting LIZANDRO, TBI,duplex US. Indication for study: Follow-up HEREDITARY CANCER PROGRAM COORDINATOR/stent/bypass Study Quality: Good TECHNIQUE: Lower/upper extremity arteries were examined per exam protocol by duplexultrasound, color-flow and spectral Doppler. Peak systolic velocities(PSV), Doppler waveform quality, velocity ratios and vessel size in cm,were documented at protocol specific sites. Physiologic data includingsegmental pressures, ankle/brachial index (LIZANDRO), digit PPG recordings,laser Doppler flowmetry, transcutaneous oximetry, and digit temperatureswere documented at sites per exam protocol and test requirements. IMPRESSION: 1. Toe-brachial index is moderately to severely reduced on the right at0.34 and toe-brachial index is mildly reduced on the left at 0.52. 2. Left ankle/brachial index is noncompressible. 3. Right ankle/brachial index is noncompressible. 4. Resting ankle-brachial index on the right at 1.59 and on the left at1.59. COMPARISON: Compared to prior study 05/30/2024, No high grade stenosis detected in theright interposition graft, but Tarvus Parvas waveform suggests proximaldisease. FINDINGS: Noncompressible vessels bilaterally. Moderate to severe right TBI and mild left TBI. The right interposition graft appears to be patent. No high grade stenosisdetected in the right interposition graft, but Tarvus Parvas waveformsuggests proximal disease. The left Common Femoral to Popliteal artery bypass appears to be patentwithout stenosis. Right ankle/brachial index is noncompressible. Right toe/brachial indexindicates moderate to severe range. Left ankle/brachial index is noncompressible. Left toe/brachial indexindicates mild range. +--------+ + + RIGHT Velocity cm/s Phasicity +--------+ + + CONTROL ROOM HELPER PRX 66 monophasic +--------+ + + PFA 189 monophasic +--------+ + + SFA PRX 0 occluded +--------+ + + SFA MID 0 occluded +--------+ + + SFA DST 0 occluded +--------+ + + EMILY PRX 52 monophasic +--------+ + + EMILY DST 32 monophasic +--------+ + + HEREDITARY CANCER PROGRAM COORDINATOR DST 28 monophasic +--------+ + + HAMLET DST 17 monophasic +--------+ + + DPA 43 monophasic +--------+ + + +--------+ + + LEFT Velocity cm/s Phasicity +--------+ + + CONTROL ROOM HELPER PRX 264 multiphasic +--------+ + + CONTROL ROOM HELPER DST 195 multiphasic +--------+ + + PFA 167 multiphasic +--------+ + + EMILY DST 104 multiphasic +--------+ + + HEREDITARY CANCER PROGRAM COORDINATOR DST 86 multiphasic +--------+ + + HAMLET DST 17 monophasic +--------+ + + DPA 55 multiphasic +--------+ + + Criteria: Stenosis V. Ratio Mild <50% <2.0 Moderate 50-74% > or = 2.0 Severe 75-99% > or = 4.0 Occluded 100% no detectable flow Pressures +-----+ +--------+ +-----+ RIGHT (mmHg) LEFT (mmHg) +-----+ +--------+ +-----+ Index 160 Brachial 88 Index +-----+ +--------+ +-----+ 0.72 116 HEREDITARY CANCER PROGRAM COORDINATOR 255 1.59 +-----+ +--------+ +-----+ 1.59 255 DPA 255 1.59 +-----+ +--------+ +-----+ 0.34 55 Digit 1 84 0.52 +-----+ +--------+ +-----+ BYPASS GRAFT Right graft type: Interpos CONTROL ROOM HELPER -PFA. +---------+ + +--------+-----+ RIGHT Velocity cm/s Phasicity Stenosis Ratio +---------+ + +--------+-----+ INFLOW 66 monophasic +---------+ + +--------+-----+ PRX ANAST 62 monophasic +---------+ + +--------+-----+ PRX GRAFT 84 monophasic +---------+ + +--------+-----+ MID GRAFT 68 monophasic +---------+ + +--------+-----+ DST GRAFT 52 monophasic +---------+ + +--------+-----+ DST ANAST 66 monophasic +---------+ + +--------+-----+ OUTLFOW 63 monophasic +---------+ + +--------+-----+ Left graft type: CONTROL ROOM HELPER-POP A. +---------+ + +--------+-----+ LEFT Velocity cm/s Phasicity Stenosis Ratio +---------+ + +--------+-----+ INFLOW 195 multiphasic +---------+ + +--------+-----+ PRX ANAST 147 multiphasic +---------+ + +--------+-----+ PRX GRAFT 77 multiphasic +---------+ + +--------+-----+ MID GRAFT 82 multiphasic +---------+ + +--------+-----+ DST GRAFT 64 multiphasic +---------+ + +--------+-----+ DST ANAST 125 multiphasic +---------+ + +--------+-----+ OUTFLOW 104 multiphasic +---------+ + +--------+-----+ Eric Demarco MD. Electronically signed on 11/21/2024 4:47:48 PM This study was performed and interpreted by a service accredited by theIntersocietal Accreditation Commission (IAC/Vascular),www.intersocietal.org/vascular Report generated by [employer]. Final us Martir Madera MD Final Result * CT CHEST W (09/16/2024 10:30 AM CDT) Anatomical Region Laterality Modality CHEST, THORAX, HEART Computed To mography 09/16/2024 11:5 6 AM CDT Impressions 09/16/2024 11:56 AM CDT 1. Partial right upper lobectomy and nodular densities thought to represent intrapulmonary lymph nodes are unchanged. 2. No evidence of metastatic disease or significant change from the prior study of 03/11/2024. Please note that all CT scans at this facility use dose modulation, iterative reconstruction, and/or weight-based dosing when appropriate to reduce radiation dose to as low as reasonably achievable. Dictated by Chele Ayon MD @ 09/16/2024 11:56:46 AM (Electronically Signed) Narrative 09/16/2024 11:56 AM CDT For Patients: As a result of the Century Cures Act, medical imaging exams and procedure reports are released immediately into your electronic medical record. You may view this report before your referring provider. If you have questions, please contact your health care provider. 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 COMPARISON: CT chest with contrast 03/11/2024 FINDINGS: Cardiovascular structures: Pacemaker with leads. Normal vascular enhancement of the pulmonary arteries, no sign of pulmonary embolism. Heart size is normal. No sign of aneurysm or dissection in the thoracic aorta. Chronic atherosclerotic disease. Mediastinum and unique: Right hilar lymph node and right paratracheal lymph nodes are unchanged in size. No additional or new lymphadenopathy. Lungs: Postoperative changes of partial right upper lobectomy are stable and unchanged. Intrapulmonary lymph nodes (3/59 and 78) are unchanged. Mild scarring at the lung bases. No new pulmonary pathology. Pleura and pericardium: No effusions. Chest wall and axilla: No mass or adenopathy. Bones: Degenerative spine. No lytic or osteoblastic lesions. Upper abdomen: Hiatus hernia. Otherwise unremarkable. Procedure Note Peterson Ayon MD - 09/16/2024 For Patients: As a result of the Cures Act, medical imagingexams and procedure reports are released immediately into your electronicmedical record. You may view this report before your referring provider.If you have questions, please contact your health care provider. 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 COMPARISON: CT chest with contrast 03/11/2024 FINDINGS: Cardiovascular structures: Pacemaker with leads. Normal vascularenhancement of the pulmonary arteries, no sign of pulmonary embolism.Heart size is normal. No sign of aneurysm or dissection in the thoracicaorta. Chronic atherosclerotic disease. Mediastinum and unique: Right hilar lymph node and right paratracheal lymphnodes are unchanged in size. No additional or new lymphadenopathy. Lungs: Postoperative changes of partial right upper lobectomy are stableand unchanged. Intrapulmonary lymph nodes (3/59 and 78) are unchanged.Mild scarring at the lung bases. No new pulmonary pathology. Pleura and pericardium: No effusions. Chest wall and axilla: No mass or adenopathy. Bones: Degenerative spine. No lytic or osteoblastic lesions. Upper abdomen: Hiatus hernia. Otherwise unremarkable. IMPRESSION: 1. Partial right upper lobectomy and nodular densities thought torepresent intrapulmonary lymph nodes are unchanged. 2. No evidence of metastatic disease or significant change from the priorstudy of 03/11/2024. Please note that all CT scans at this facility use dose modulation,iterative reconstruction, and/or weight-based dosing when appropriate toreduce radiation dose to as low as reasonably achievable. Dictated by Chele Ayon MD @ 09/16/2024 11:56:46 AM (Electronically Signed) Ирина Monreal STACKER AND SORTER OPERATOR CT Final Result * (ABNORMAL) CREATININE,ISTAT (09/16/2024 10:19 AM CDT) [facility] CREATININE, POCT 1.70(H) 0.57 - 1.11 mg/dL 09/16/2024 10:21 AM CDT [facility] Comment:Caution: Patients ta agusto Hydroxyurea have falsely increased iStat Creatinine results. Verify creatinine results ordering a Creatinine (08929.2) eGFR 41(L) >90 mL/min/1.7 3m2 09/16/2024 10:21 AM CDT [facility] Comment:As of 2021, eG FR is calculated by the CKD-EPI creatinine equation without race adjustment. eGFR can be influenced by muscle mass, exercise, and diet. The reported eGFR is an estimation only and is only applicable if the renal function is stable. Blood BLOOD SPECIMEN / Unknown 09/16/2024 10:19 AM CDT 09/16/2024 10:21 AM CDT us Doctor Unknown CHEMISTRY Final Result [facility] [address] [place], [place] [id number] * (ABNORMAL) CBC WITH AUTO DIFFERENTIAL (09/16/2024 10:10 AM CDT) [facility] WHITE BLOOD COUNT 9.8 4.5 - 11.0 thou/cu mm 09/16/2024 10:15 AM CDT [facility] RED BLOOD COUNT 4.07(L) 4.30 - 5.90 mil/cu mm 09/16/2024 10:15 AM CDT [facility] HEMOGLOBIN 11.1(L) 13.5 - 17.5 g/dL 09/16/2024 10:15 AM [facility] HEMATOCRIT 36.7(L) 37.0 - 53.0 % 09/16/2024 10:15 AM [facility] MCV 90 80 - 100 fL 09/16/2024 10:15 AM [facility] MCH 27.3 26.0 - 34.0 pg 09/16/2024 10:15 AM [facility] MCHC 30.2(L) 32.0 - 36.0 g/dL 09/16/2024 10:15 AM [facility] RDW 13.5 11.5 - 15.5 % 09/16/2024 10:15 AM [facility] PLATELET COUNT 209 140 - 440 thou/cu mm 09/16/2024 10:15 AM [facility] MPV 10.6 6.5 - 11.0 fL 09/16/2024 10:15 AM [facility] % NEUT 45.1 % 09/16/2024 10:15 AM [facility] % LYMPH 39.8 % 09/16/2024 10:15 AM [facility] % MONO 10.2 % 09/16/2024 10:15 AM [facility] % EOS 4.7 % 09/16/2024 10:15 AM [facility] % BASO 0.2 % 09/16/2024 10:15 AM [facility] ABSOLUTE NEUTROPHILS 4.4 1.7 - 7.0 thou/cu mm 09/16/2024 10:15 AM [facility] ABSOLUTE LYMPHOCYTES 3.9(H) 0.9 - 2.9 thou/cu mm 09/16/2024 10:15 AM [facility] ABSOLUTE MONOCYTES 1.0(H) <0.9 thou/cu mm 09/16/2024 10:15 AM [facility] ABSOLUTE EOSINOPHILS 0.5(H) <0.5 thou/cu mm 09/16/2024 10:15 AM [facility] ABSOLUTE BASOPHILS 0.0 <0.3 thou/cu mm 09/16/2024 10:15 AM CDT [facility] Blood BLOOD SPECIMEN / Unknown Venipuncture / Unknown 09/16/2024 10:10 AM CDT 09/16/2024 10:10 AM CDT us Ирина Haley Jocelin STACKER AND SORTER OPERATOR HEMATOLOGY Final Result Performing Organization Address City/[facility]/ZIP Co de Phone Number [facility] [address] [place] [address] * (ABNORMAL) IRON PLUS IRON BINDING CAP (09/16/2024 10:10 AM CDT) IRON 34(L) 61 - 157 ug/dL 09/16/2024 11:34 PM CDT [facility] UIBC (UNSATURATED) 388(H) 112 - 347 ug/dL 09/16/2024 11:34 PM CDT [facility] IRON BINDING CAPACITY 422(H) 250 - 400 ug/dL 09/16/2024 11:34 PM CDT [facility] IRON,% SATURATION 8(L) 14 - 50 % 09/16/2024 11:34 PM CDT [facility] Blood BLOOD SPECIMEN / Unknown Venipuncture / Unknown 09/16/2024 10:10 AM CDT 09/16/2024 10:10 AM CDT us Ирина Monreal STACKER AND SORTER OPERATOR CHEMISTRY Final Result [facility] [address] [place] [address], [place] * (ABNORMAL) IGM (09/16/2024 10:10 AM CDT) IGM 370.40(H) 35.00 - 242.00 mg/dL 09/17/2024 9:30 AM CDT [facility] Blood BLOOD SPECIMEN / Unknown Venipuncture / Unknown 09/16/2024 10:10 AM CDT 09/16/2024 10:10 AM CDT us Ирина Monreal NP CHEMISTRY Final Result [facility] [address] [place] [address], [place] * (ABNORMAL) PROTEIN ELP,SERUM (09/16/2024 10:10 AM CDT) ELP,ALBUMIN 4.14 3.31 - 5.31 g/dL 09/18/2024 2:02 PM CDT [facility] ELP,ALPHA 1 0.29 0.19 - 0.42 g/dL 09/18/2024 2:02 PM CDT [facility] ELP,ALPHA 2 0.66 0.44 - 1.03 g/dL 09/18/2024 2:02 PM CDT [facility] ELP,GAMMA 0.88 0.59 - 1.46 g/dL 09/18/2024 2:02 PM CDT [facility] ELP,BETA 1.03 0.52 - 1.05 g/dL 09/18/2024 2:02 PM CDT [facility] MONOCLONAL PEAK 1 0.18 <=0.00 g/dL 09/18/2024 2:02 PM CDT [facility] ELP INTERP,SERUM Interval study shows a decrease in magnitude of previously identified monoclonal peak. Previous Study: 0.27 gm/dL on 03/11/2024. Interpreted and electronically signed by: Odalis Leal MD 09/18/2024 2:02 PM CDT [facility] PROTEIN,TOTAL 7.0 6.0 - 8.0 g/dL 09/18/2024 2:02 PM CDT [facility] Blood BLOOD SPECIMEN / Unknown Venipuncture / Unknown 09/16/2024 10:10 AM CDT 09/16/2024 10:10 AM CDT us Ирина L Selly STACKER AND SORTER OPERATOR CHEMISTRY Final Result Performing Organization Address City/[facility]/ZIP Co de Phone Number [facility] [address] [place] [address], [place] * (ABNORMAL) FERRITIN (09/16/2024 10:10 AM CDT) FERRITIN 11.9(L) 30.0 - 400.0 ng/mL 09/16/2024 11:34 PM CDT [facility] Blood BLOOD SPECIMEN / Unknown Venipuncture / Unknown 09/16/2024 10:10 AM CDT 09/16/2024 10:10 AM CDT us Ирина Monreal STACKER AND SORTER OPERATOR CHEMISTRY Final Result Performing Organization Address [facility] Co de Phone Number [facility] [address] [place] [address], [place] * (ABNORMAL) COMP METABOLIC PANEL (09/16/2024 10:10 AM CDT) Pathologist [facility] SODIUM 136 136 - 145 mmol/L 09/16/2024 10:46 AM [facility] POTASSIUM 4.6 3.5 - 5.1 mmol/L 09/16/2024 10:46 AM [facility] CHLORIDE 105 98 - 107 mmol/L 09/16/2024 10:46 AM [facility] CO2,TOTAL 24 22 - 29 mmol/L 09/16/2024 10:46 AM [facility] ANION GAP 7 5 - 18 09/16/2024 10:46 AM [facility] GLUCOSE 123(H) 70 - 99 mg/dL 09/16/2024 10:46 AM [facility] CALCIUM 10.5(H) 8.8 - 10.4 mg/dL 09/16/2024 10:46 AM [facility] Comment: Reference ranges for this test were updated on 04/09/2024 to reflect our healthy population more accurately. Reference range changes are not retroactively applied to results, but previous results using the same methodology can be interpreted in the context of the new reference range. BUN 29(H) 8 - 23 mg/dL 09/16/2024 10:46 AM [facility] CREATININE 1.59(H) 0.70 - 1.20 mg/dL 09/16/2024 10:46 AM [facility] BUN/CREAT RATIO 18 10 - 20 10:46 AM [facility] eGFR 44(L) >90 mL/min/1. 73m2 09/16/2024 10:46 AM [facility] Comment:As of 2021, eG FR is calculated by the CKD-EPI creatinine equation without race adjustment. eGFR can be influenced by muscle mass, exercise, and diet. The reported eGFR is an estimation only and is only applicable if the renal function is stable. ALBUMIN 4.6 4.0 - 4.9 g/dL 09/16/2024 10:46 AM [facility] PROTEIN,TOTAL 7.2 6.0 - 8.0 g/dL 09/16/2024 10:46 AM [facility] BILIRUBIN,TOTAL 1.1 0.0 - 1.2 mg/dL 09/16/2024 10:46 AM [facility] ALK PHOSPHATASE 69 40 - 129 IU/L 09/16/2024 10:46 AM [facility] ALT (SGPT) 20 10 - 50 IU/L 09/16/2024 10:46 AM [facility] AST (SGOT) 22 10 - 50 IU/L 09/16/2024 10:46 AM [facility] Blood BLOOD SPECIMEN / Unknown Venipuncture / Unknown 09/16/2024 10:10 AM CDT 09/16/2024 10:10 AM [facility] - 09/16/2024 10:46 AM T Na performed on GEM us Ирина Monreal NP CHEMISTRY Final Result [facility] [address] [place] [address] * ANTI HCV (06/24/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) ANTI HCV Non-reacti ve [facility] Blood specimen (specimen) BLOOD SPECIMEN / Unknown 06/24/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 WORKER 06/24/2013 3:57 PM REBAR WORKER us Meng Madera MD SEND OUTS Final Res ult [facility] INTERNAL ZIP [address] [place] [address] from Last 3 Months or Most Recently Relevant to Health Maintenance Insurance MEDICARE PB ONLY [employer] MEDICARE PART B HB ONLY MEDICARE PART A HB ONLY [facility] MEDICARE PART A HB ONLY MEDICARE PART B HB ONLY Advance Directives Documents on File Type Date Recorded Patient Radio Talk Show Host Expl anation POLST 05/03/2019 11:01 AM 04/25/20 19 * Full Code (Latest Code Status on File) Date Activated Date Inactivated Comments 06/14/2024 10:32 AM 06/14/2024 4:29 PM Question Answer Comments Code Status Discussion: Reviewed Preferences * Full Code Date Activated Date Inactivated Comments 11/14/2023 5:39 PM 11/15/2023 1:39 PM Question Answer Comments Code Status Discussion: Reviewed Preferences * Full Code Date Activated Date Inactivated Comments 09/20/2023 5:29 PM 09/21/2023 1:37 PM Question Answer Comments Code Status Discussion: Unable to Assess Preferences, Provider to review later * Full Code Date Activated Date Inactivated Comments 05/16/2023 7:30 AM 05/16/2023 4:41 PM Question Answer Comments Code Status Discussion: Reviewed Preferences * Full Code Date Activated Date Inactivated Comments 05/15/2023 12:16 PM 05/16/2023 7:30 AM Question Answer Comments Code Status Discussion: Unable to Assess Preferences, Provider to review later Care Teams Printed Circuit Board Panels Deburrer Relationship Specialty Start Date End Date Satish Issa MD [address] [place] [address] PCP - General 09/26/05 Lucinda Toure MD [address] [place] [address] Oncology Hematology and Oncology 03/03/20 Ириан Monreal, STACKER AND SORTER OPERATOR [address] [place] [address] Oncology Nurse Practitioner - Family 03/03/20 Maria De Jesus Adorno, RN, BSN [address] [place] [address] Nurse Navigator - Oncology Registered Nurse 04/14/23 Mundo Rodarte MD [address] [address] Surgery - Cardiothoracic 04/20/23
--- OUTSIDE RECORDS SUMMARY | 2024-11-29 09:09 | XMS_ITS | CCD ---
Author Name Interface, [id number] lity Address [address] [place] [address] [facility] Oncology Address [address] [address] Care Team Providers Care Construction Quality Control Manager Name Role Phone Hernandez Mckeon Unavailable Unavailable Reason for Visit Social History
--- OUTSIDE RECORDS SUMMARY | 2024-11-29 09:10 | XMS_ITS | CCD ---
Author Name Interface, [id number] lity Address [address] [place] [address] [facility] Oncology Address [address] [address] Care Team Providers Care Cafe Aide Name Role Phone Hernandez Mckeon Unavailable Unavailable Reason for Visit Social History
--- OUTSIDE RECORDS SUMMARY | 2024-11-29 09:16 | XMS_ITS | CCD ---
Author Name Interface, [id number] lity Address [address] [place] [address] [facility] Oncology Address [address] [address] Care Team Providers Care Bitumastic Applier Name Role Phone Hernandez Mckeon Unavailable Unavailable Reason for Visit Social History
--- OUTSIDE RECORDS SUMMARY | 2024-11-29 09:16 | XMS_ITS | CCD ---
Author Name Interface, [id number] lity Address [address] [place] [address] [facility] Oncology Address [address] [place] [address] Care Team Providers Care Feller Hand Name Role Phone Hernandez Mckeon Unavailable Unavailable Reason for Visit NEW PT CONSULT 60 MIN Social History Date Name Value Sex Male
[2024-11-29 09:22] LABS: Albumin* 4.7 g/dL (3.3-5.0); Chloride* 105 mmol/L (96-114); Sodium* 140 mmol/L (135-149)
[2024-11-29 09:23] LABS: Potassium* 4.3 mmol/L (3.6-5.1)
[2024-11-29 09:25] LABS: Alanine Aminotransferase* 31 U/L (4-50); Anion Gap 10 mEq/L (7-15); Aspartate Amino Transferase* 30 U/L (12-35); Bilirubin Total* 1.3 mg/dL (0.1-1.5); Blood Urea Nitrogen* 24 mg/dL (7-30); Calcium* 10.6 mg/dL (8.4-10.6); Carbon Dioxide* 25 mmol/L (20-32); Creatinine* 1.2 mg/dL (0.5-1.5); Estimated Glomerular Filt Rate 62 ml/min; Glucose* 114 mg/dL (60-115); Total Protein* 7.9 g/dL (6.0-8.3)
[2024-11-29 09:26] LABS: Alkaline Phosphatase* 71 U/L (40-150)
--- OUTSIDE RECORDS SUMMARY | 2024-11-29 15:51 | XMS_ITS | CCD ---
Author Name Interface, [id number] lity Address [address] [place] [address] [facility] Oncology Address [address] [address] Care Team Providers Care Booster Pump Oiler Name Role Phone Hernandez Mckeon Unavailable Unavailable Reason for Visit Social History
--- OUTSIDE RECORDS SUMMARY | 2024-11-29 15:51 | XMS_ITS | CCD ---
Author Name Interface, [id number] lity Address [address] [place] [address] [facility] Oncology Address [address] [address] Care Team Providers Care Hands And Dial Inspector Name Role Phone Hernandez Mckeon Unavailable Unavailable Reason for Visit Social History
--- OUTSIDE RECORDS SUMMARY | 2024-11-30 00:21 | XMS_ITS | Clinical Summary ---
Author Organization [facility] Address [address] [facility] [place] [address] Care Team Providers Care Locomotive Mechanic Apprentice Name Role Phone Satish Issa Primary Care Provider [phone] Allergies Active Allergy Reactions Criticality Noted Date [...] Insurance MEDICARE / MEDICARE / Care Teams Locomotive Mechanic Apprentice Relationship Specialty Start Date End Date Satish Issa [address] [place] [address] PCP - General Family Medicine 10/16/23
--- OUTSIDE RECORDS SUMMARY | 2024-11-30 00:21 | XMS_ITS | Clinical Summary ---
Author Organization [facility] Address [address] [place] [address] Care Team Providers Care Relocation Manager Name Role Phone Unavailable Primary Care Provider Unavailabl e Source Comments Patient records contain information from all sites at [facility]. For routine questions regarding patient records, call [phone] during business hours, M-F 8:00 AM - 5:00 PM Central Time. Record requests for emergency care only can be directed to [phone] at any time.[facility] Allergies Active Allergy Reactions Criticality Noted Date [...] Results Follow-Up Department of Radiation Oncology in [address] [address] Milo Del Castillo R.N. PSA (Prostate-Specific Antigen), Diagnostic 11/18/2024 11:25 AM CDT - 11/18/2024 11:59 PM CDT Hospital Encounter Department of Laboratory Medicine in [address] [place] [address] Alyson Drake P.A.-C., M.S. Primary Malignant Neoplasm Of Prostate (HCC) Discharge Disposition: Home or Self Care 11/01/2024 1:45 PM CDT Office Visit Department of Ophthalmology in [address] [address] Liu Noonan M.D. Other Hereditary Corneal Dystrophies Bilateral (Primary Dx) 09/20/2024 Documentation Department of Ophthalmology in [address] [phone] Liu Noonan M.D. 09/20/2024 Clinical Communication Department of Ophthalmology in [address] [phone] Liu Noonan M.D. 09/13/2024 1:45 PM CDT Office Visit Department of Ophthalmology in [address] [address] Liu Noonan M.D. Other Hereditary Corneal Dystrophies Bilateral (Primary Dx) 09/10/2024 10:00 AM CDT Office Visit Department of Ophthalmology in [address] [address] Liu Noonan M.D. Other Hereditary Corneal Dystrophies Bilateral (Primary Dx) 09/09/2024 11:15 AM CDT Office Visit Department of Ophthalmology in [address] [address] Liu Noonan M.D. 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 Gender Identity Not on file Sexual Orientation Not on file Last Filed Vital Signs Vital Sign Reading Time Taken Comments Blood Pressure 125/42 05/20/2024 3:24 PM COMPLAINT SUPERVISOR Pulse 83 05/20/2024 3:24 PM COMPLAINT SUPERVISOR Temperature 36.5 C (97.7 F) 05/20/2024 3:24 PM COMPLAINT SUPERVISOR Respiratory Rate - - Oxygen Saturation - - Inhaled Oxygen Concentration - - Weight 97.5 kg (214 lb 15.2 oz) 05/20/2024 3:24 PM COMPLAINT SUPERVISOR Height - - Body Mass Index - [...] this topic Medical Devices Implanted Type Area Demurrage Man Device Identifier Shelf Expiration Date Model / [...] P.A.-C., M.S. LAB BLOOD ADD-ON Final Result [facility] [address] [place] [address], [facility] [place] [address] [place] [address] * Remove Corneal Epithelium - OS - [...] ORDERS from Last 3 Months Insurance MEDICARE [facility] investUP
--- OUTSIDE RECORDS SUMMARY | 2024-11-30 00:21 | XMS_ITS ---
Author Organization [facility] Address [address] [place] [address] Care Team Providers Care Production Drilling Machine Operator Name Role Phone Unavailable Primary Care [...] / 20 6,000 cGy Reference Points Delivered [id number] 05/03/2021 - 05/31/2021 6,000 cGy
--- OUTSIDE RECORDS SUMMARY | 2024-11-30 00:21 | XMS_ITS | Encounter Summary ---
Author Organization [facility] Address [address] [place] [address] Care Team Providers Care Bag Machine Tender Name Role Phone Unavailable Primary Care Provider Unavailabl e Encounter Details Date Type Department Care Team (Latest Contact Info) Description 09/20/2024 Clinical Communication Department of Ophthalmology in [place], [place] [address] [place] [address] Liu Noonan M.D. 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
--- OUTSIDE RECORDS SUMMARY | 2024-11-30 00:21 | XMS_ITS | CCD ---
Author Name Interface, [id number] lity Address [address] [place] [address] [facility] Oncology Address [address] [address] Care Team Providers Care Traveling Passenger Agent Name Role Phone Hernandez Mckeon Unavailable Unavailable Reason for Visit Social History
--- OUTSIDE RECORDS SUMMARY | 2024-11-30 00:21 | XMS_ITS | Encounter Summary ---
Author Organization [facility] Address [address] [place] [address] Care Team Providers Care Education Professor Name Role Phone Unavailable Primary Care Provider Unavailabl e Encounter Details Date Type Department Care Team (Late st Contact Info) Description 11/19/2024 Results Follow-Up Department of Radiation Oncology in [place], [place] [address] [place] [phone] Milo Del Castillo, R.N. PSA (Prostate-Specific Antigen), Diagnostic Social History Tobacco Use Types Packs/Day Years Used Date Smoking Tobacco: Former Cigarettes Q uit: 2010 Smokeless Tobacco: Never Sex and Gender Information Value Date Recorded Sex Assigned at Not on file Legal Sex Male 11:15 AM CLINICAL DOCUMENTATION SPECIALIST Gender Identity Not on file Sexual Orientation Not on file documented as of this encounter Plan of Treatment Not on file documented as of this encounter Visit Diagnoses Not on filedocumented in this encounter
--- OUTSIDE RECORDS SUMMARY | 2024-11-30 00:22 | XMS_ITS | CCD ---
Author Name Interface, [id number] lity Address [address] [place] [address] [facility] Oncology Address [address] [address] Care Team Providers Care Ear Nose Throat Physician Name Role Phone Hernandez Mckeon Unavailable Unavailable Reason for Visit Social History
--- OUTSIDE RECORDS SUMMARY | 2024-11-30 00:22 | XMS_ITS | Clinical Summary ---
Author Organization [facility] Address [address] [place] [id number] Care Team Providers Care Spaghetti Machine Operator Name Role Phone Satish Issa MD Primary Care Provider Lucinda Toure MD Unavailable [phone] Ирина Monreal NP Unavailable Maria De Jesus Adorno RN, BSN Unavailable Unavailab Mundo Palmer MD Unavailable [phone] Allergies Active Allergy Reactions Criticality Noted Date [...] resection and lymphadenectomy with Dr. Rodarte at [facility] on 05/15/23. Primary hypertension 05/15/2023 Iron deficiency anemia due to chronic blood loss 05/15/2023 Grief at loss of child 11/13/2021 Coronary artery disease invo lving [place] coronary artery of [place] heart 09/13/2021 Chest pain 09/09/2021 Acute on [...] Description 11/29/2024 8:00 AM CDT Ancillary Procedure [facility] [address] [place] [address] Arrived 11/21/2024 11:30 AM CDT Office Visit [facility] [place] [address] [place] [address] Martir Madera MD CV Vascular Est (1 year follow up; lower extremity PAD. U/S scheduled prior. ) 11/21/2024 9:42 AM CDT - 11/21/2024 11:59 PM CDT Hospital Encounter [facility] [address] [place] [address] Martir Madera MD Leistner, Joseph S, R.T. (ARRT) PAD (peripheral artery disease) 11/21/2024 Travel 11/15/[address] [facility] [address] [facility] [place] [facility] [place] [address] Chio Benjamin MD Appointment Request (Lab) 10/08/2024 Telephone [facility] [address] [place] [address] Martir Madera MD Follow Up 10/03/2024 9:53 AM CDT - 10/03/2024 11:59 PM CDT Hospital Encounter [facility] [address] [facility] [place] [address] Iron deficiency anemia due to chronic blood loss (Primary Dx) 10/03/2024 Travel 10/01/2024 Hospital/[facility] Telephone Encounter [facility] 200 [place] [address] Moraima Espinoza RN Pre Procedure (PVP) 09/27/2024 11:49 AM CDT - 09/27/2024 11:59 PM CDT Hospital Encounter [facility] [address] [place] [address] Iron deficiency anemia due to chronic blood loss (Primary Dx) 09/27/2024 Travel 09/20/2024 Hospital/[facility] Telephone Encounter [facility] [address] [place] [address] Caryl Sepulveda RN Pre Procedure 09/19/2024 1:30 PM CDT Office Visit [facility] [address] [facility] [place] [address] Lucinda Toure MD Follow Up 09/19/2024 Telephone [facility] [address] [place] [address] Formerly [facility] Cancer Appointment 09/19/2024 Travel 09/16/2024 10:03 AM CDT - 09/16/2024 11:59 PM CDT Hospital Encounter [facility] [address] [place] [place] [address] Ирина Morneal, HISTORY PROFESSOR Iron deficiency anemia due to chronic blood loss [D50.0]; Primary cancer of right upper lobe of lung (HC) 09/16/2024 10:03 AM CDT - 09/16/2024 11:59 PM CDT Hospital Encounter [facility] [address] [place] [address] Iron deficiency anemia due to chronic blood [...] on file Legal Sex Male 5:23 AM 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 [address] [place] [address] Chio Benjamin MD [address] [place] [address] 12/12/2024 12:00 PM CDT Appointment [facility] [address] [place] [address] 12/17/2024 12:45 PM CDT Office Visit [facility] [address] [place] [address] Ирина Monreal, HENNY [address] [place] [address] 03/12/2025 1:15 PM CDT Cardiac Device Check [facility] [address] [place] [address] Health Maintenance Due Date Last Done Comments [...] this topic Medical Devices Implanted Type Area Punch Press Setter Device Identifier Shelf Expiration Date Model / Serial / Lot Graft Vasc 8mm 40cm Propaten Thin Wall Removable Ring - [id number] Implanted:Qty: 1 on 09/18/2018 by Martir Madera MD at [facility] Cv Implants Left: Femoral Artery [employer] 12/12/2021 [id number]# / [id number] / Graft Vasc [id number] Hem[employer] - [id number] Implanted:Qty: 1 on 11/30/2020 by Martir Madera MD at [facility] Grafts Right: Femoral Artery [employer] 04/04/2025 [id number] / [id number] Tissue Pericardium 0.8x8cm Xenosure - [id number] Implanted:Qty: 1 on 07/23/2019 by Martir Madera MD at [facility] Right: Femoral Artery [employer] 01/30/2025 [id number] / / Procedures Procedure Name Priority Date/Time Associated Diagnosis Comments ECHO TTE COMPLETE WO CONTRAST Routine 11/29/2024 8:40 AM CDT Ischemic heart disease US ARTERIAL LOWER EXTREMITY W LIZANDRO BILATERAL [...] (HC) ANTI HCV Routine 06/24/2013 4:09 PM SURGICAL GARMENT ASSEMBLER Elevated LFTs from Last 3 Months or Most Recently Relevant to Health Maintenance Results * ECHO TTE COMPLETE WO CONTRAST (11/29/2024 8:40 AM CDT) AORTIC VALVE MEAN PG 12 mmHg EJECTION FRACTION 53 % PEAK TR VELOCITY 3.0 m/s LVEDD 4.3 cm MITRAL VALVE MR ERO 17 mm2 EJECTION FRACTION 55 - 60% Anatomical Region Laterality Modality Ultrasound 11/29/2024 8:01 AM CDT Narrative 11/29/2024 9:09 AM CDT ECHOCARDIOGRAM HOUSTON HERMAN : 1945 79 years Study Date: 11/29/2024 8:01:33 AM Gender: M BP: 176/62 mmHg Height: 178.00 cm BSA: 2.11 m Weight: 93.00 kg Tech: MAGNOLIA Referring MD: PRANAV ARAGONALEXANDER Site: [facility] Reading Location: Mobile-OP Patient Location: Outpatient. Procedure: 2D, Color Doppler and Spectral Doppler. Indication for study: Ischemic heart disease Cardiac Rhythm: Regular.Study quality: Fair. Imaging limitations: This study was subject to imaging limitations due to body habitus and a prominent lung artifact. Final Impressions: 1. Normal LV size, mildly increased wall thickness, normal function with an estimated EF of 55 - 60%. 2. Inferior wall is abnormal. 3. Right ventricular cavity size is normal, global systolic RV function is normal. 4. Mildly enlarged left atrium. 5. The aortic valve is sclerotic, mild stenosis and mild to moderate regurgitation. 6. The mitral valve is sclerotic, moderate mitral regurgitation. 7. Tricuspid valve is normal, moderate tricuspid regurgitation. Comparison Compared directly to prior exam of 09/10/2021, there has been no significant change. Chamber Sizes and Function Normal left ventricular size, mildly increased wall thickness, normal global systolic function with an estimated EF of 55 - 60%. Left atrial size is mildly enlarged. Right ventricular cavity size is normal, global systolic RV function is normal. The right atrium is normal. Right atrial volume index is 30 ml/m . Right atrial area is 21 cm . The pulmonary artery is not well visualized. The sinus of Valsalva is normal sized. The ascending aorta is normal sized. The inferior wall is hypokinetic. Valves, RV Pressures and Diastolic Function The aortic valve is sclerotic, mild stenosis and mild to moderate regurgitation. The mitral valve is sclerotic, moderate mitral regurgitation. Indeterminate pattern of LV diastolic filling. The tricuspid valve is normal in structure, moderate tricuspid regurgitation. The tricuspid regurgitant velocity is 3.0 m/s, the estimated right ventricular systolic pressure is 36 mmHg plus right atrial pressure. The pulmonic valve is not well visualized. Trace pulmonary regurgitation. Masses, Effusion, Shunts There is no pericardial effusion. The inferior vena cava is normal sized, respiratory size variation greater than 50%. No left to right shunting was detected by limited color flow Doppler interrogation of the interatrial septum. MEASUREMENTS AND CALCULATIONS 2-D Measurements and LV Function: LVID (d) 4.2 cm LV FS% (2D) 35 % LVID (s) 2.8 cm LVOT diameter 2.0 cm IVS (d) 1.3 cm HR 65 bpm LVPW (d) 1.3 cm LA Vol index 33 ml/m2 Ao Sinus 3.8 cm RA Vol index 30 ml/m2 Ao Sinus ULN 4.2 cm * RA area 21 cm Asc Ao 3.7 cm RV Basal Diam 4.3 cm Asc Ao ULN 4.4 cm * RV Mid Diam 3.1 cm LA 4.1 cm * Input BSA outside of range, reported values correspond to BSA = 2.1 Diastology: Mitral Tissue Doppler E Peak 1.2 m/s e', Septum 0.06 m/s A Peak 1.0 m/s e', Lateral 0.10 m/s E/A 1.2 E/e' Average 14.40 DT 153 msec Aortic Valve: Vmax 2.5 m/s ANA M (V) 1.90 cm AI P 1/2 388 msec VTI 0.56 m ANA M (I) 1.81 cm LVOT V max 1.5 m/s Max PG 24 mmHg LVOT VTI 0.32 m Mean PG 12 mmHg SV 101 ml Dim Index 0.57 SV index 48 ml/m CO 6.5 l/min CI 3.1 l/min/m Mitral Valve: MVA 5.0 cm MR ERO 0.17 cm MV P 1/2 44 msec MR Vol. 38 ml MR TVI 2.26 m Tricuspid Valve and estimated PA pressures: TR Vmax 3.0 m/s TAPSE 2.5 cm TR maxG 36 mmHg . This study was interpreted by an [facility] accredited facility. CC: [facility] (med records) [facility]. Final Procedure Note John Shankar MD - 11/29/2024 ECHOCARDIOGRAM HOUSTON HERMAN : 1945 79 years Study Date: 11/29/2024 8:01:33 AM Gender: M BP: 176/62 mmHg Height: 178.00 cm BSA: 2.11 m Weight: 93.00 kg Tech: MAGNOLIA Referring MD: PRANAV CHEN [facility] Site: [facility] Reading Location: Mobile-OP Patient Location: Outpatient. Procedure: 2D, Color Doppler and Spectral Doppler. Indication for study: Ischemic heart disease Cardiac Rhythm: Regular.Study quality: Fair. Imaging limitations: This study was subject to imaging limitations due tobody habitus and a prominent lung artifact. Final Impressions: 1. Normal LV size, mildly increased wall thickness, normal function withan estimated EF of 55 - 60%. 2. Inferior wall is abnormal. 3. Right ventricular cavity size is normal, global systolic RV functionis normal. 4. Mildly enlarged left atrium. 5. The aortic valve is sclerotic, mild stenosis and mild to moderateregurgitation. 6. The mitral valve is sclerotic, moderate mitral regurgitation. 7. Tricuspid valve is normal, moderate tricuspid regurgitation. Comparison Compared directly to prior exam of 09/10/2021, there has been no significantchange. Chamber Sizes and Function Normal left ventricular size, mildly increased wall thickness, normalglobal systolic function with an estimated EF of 55 - 60%. Left atrialsize is mildly enlarged. Right ventricular cavity size is normal, globalsystolic RV function is normal. The right atrium is normal. Right atrialvolume index is 30 ml/m . Right atrial area is 21 cm . The pulmonaryartery is not well visualized. The sinus of Valsalva is normal sized. Theascending aorta is normal sized. The inferior wall is hypokinetic. Valves, RV Pressures and Diastolic Function The aortic valve is sclerotic, mild stenosis and mild to moderateregurgitation. The mitral valve is sclerotic, moderate mitralregurgitation. Indeterminate pattern of LV diastolic filling. Thetricuspid valve is normal in structure, moderate tricuspid regurgitation.The tricuspid regurgitant velocity is 3.0 m/s, the estimated rightventricular systolic pressure is 36 mmHg plus right atrial pressure. Thepulmonic valve is not well visualized. Trace pulmonary regurgitation. Masses, Effusion, Shunts There is no pericardial effusion. The inferior vena cava is normal sized,respiratory size variation greater than 50%. No left to right shunting wasdetected by limited color flow Doppler interrogation of the interatrialseptum. MEASUREMENTS AND CALCULATIONS 2-D Measurements and LV Function: LVID (d) 4.2 cm LV FS% (2D) 35% LVID (s) 2.8 cm LVOT diameter2.0 cm IVS (d) 1.3 cm HR 65bpm LVPW (d) 1.3 cm LA Vol index 33ml/m2 Ao Sinus 3.8 cm RA Vol index 30ml/m2 Ao Sinus ULN 4.2 cm * RA area 21cm Asc Ao 3.7 cm RV Basal Diam4.3 cm Asc Ao ULN 4.4 cm * RV Mid Diam3.1 cm LA 4.1 cm * Input BSA outside of range, reported values correspond to BSA = 2.1 Diastology: Mitral Tissue Doppler E Peak 1.2 m/s e', Septum 0.06 m/s A Peak 1.0 m/s e', Lateral 0.10 m/s E/A 1.2 E/e' Average 14.40 DT 153 msec Aortic Valve: Vmax 2.5 m/s ANA M (V) 1.90 cm AI P 1/2 388 msec VTI 0.56 m ANA M (I) 1.81 cm LVOT V max 1.5 m/s Max PG 24 mmHg LVOT VTI 0.32 m Mean PG 12 mmHg SV 101 ml Dim Index 0.57 SV index 48 ml/m CO 6.5 l/min CI 3.1 l/min/m Mitral Valve: MVA 5.0 cm MR ERO 0.17 cm MV P 1/2 44 msec MR Vol. 38 ml MR TVI 2.26 m Tricuspid Valve and estimated PA pressures: TR Vmax 3.0 m/s TAPSE 2.5 cm TR maxG 36 mmHg . This study was interpreted by an [facility] accredited facility. CC: [facility] (med records) [facility]. Final us Pranav [facility] DO ECHO ORD Renu l Result * US ARTERIAL LOWER EXTREMITY W LIZANDRO BILATERAL (11/21/2024 10:52 AM CDT) Anatomical Region Laterality Modality LEGS Ultrasound 11/21/2024 9:52 AM CDT Narrative 11/21/2024 4:47 PM CDT VASCULAR ULTRASOUND REPORT HOUST[place] HERMAN : 1945 Study Date: 11/21/2024 9:52:08 AM Age: 79 years Tech: MANN Gender: M Referring MD: MARTIR MADERA Site: [facility] Vascular Center Study performed: Lower extremity (bilateral), resting LIZANDRO, TBI, duplex US. Indication for study: Follow-up SHIP SELF DEFENSE SYSTEM MK1 OPERATOR/stent/bypass Study Quality: Good TECHNIQUE: Lower/upper extremity arteries [...] RIGHT Velocity cm/s Phasicity +--------+ + + WORKSITE WELLNESS PRACTITIONER PRX 66 monophasic +--------+ + + PFA 189 monophasic +--------+ + + SFA PRX 0 occluded +--------+ + + SFA MID 0 occluded +--------+ + + SFA DST 0 occluded +--------+ + + EMILY PRX 52 monophasic +--------+ + + EMILY DST 32 monophasic +--------+ + + SHIP SELF DEFENSE SYSTEM MK1 OPERATOR DST 28 monophasic +--------+ + + HAMELT DST 17 monophasic +--------+ + + DPA 43 monophasic +--------+ + + +--------+ + + LEFT Velocity cm/s Phasicity +--------+ + + WORKSITE WELLNESS PRACTITIONER PRX 264 multiphasic +--------+ + + WORKSITE WELLNESS PRACTITIONER DST 195 multiphasic +--------+ + + PFA 167 multiphasic +--------+ + + EMILY DST 104 multiphasic +--------+ + + SHIP SELF DEFENSE SYSTEM MK1 OPERATOR DST 86 multiphasic +--------+ + + HAMLET [...] 88 Index +-----+ +--------+ +-----+ 0.72 116 SHIP SELF DEFENSE SYSTEM MK1 OPERATOR 255 1.59 +-----+ +--------+ +-----+ 1.59 255 DPA 255 1.59 +-----+ +--------+ +-----+ 0.34 55 Digit 1 84 0.52 +-----+ +--------+ +-----+ BYPASS GRAFT Right graft type: Interpos WORKSITE WELLNESS PRACTITIONER -PFA. +---------+ + +--------+-----+ RIGHT Velocity cm/s Phasicity Stenosis Ratio +---------+ + +--------+-----+ INFLOW 66 monophasic +---------+ + +--------+-----+ PRX ANAST 62 monophasic +---------+ + +--------+-----+ PRX GRAFT 84 monophasic +---------+ + +--------+-----+ MID GRAFT 68 monophasic +---------+ + +--------+-----+ DST GRAFT 52 monophasic +---------+ + +--------+-----+ DST ANAST 66 monophasic +---------+ + +--------+-----+ OUTLFOW 63 monophasic +---------+ + +--------+-----+ Left graft type: WORKSITE WELLNESS PRACTITIONER-POP A. +---------+ + +--------+-----+ LEFT Velocity cm/s [...] Accreditation Commission (IAC/Vascular), [email or web address] Report generated by [employer]. Final Procedure Note Eric Demarco MD - 11/21/2024 VASCULAR ULTRASOUND REPORT HOU[place] HERMAN : 1945 Study Date: 11/21/2024 9:52:08 AM Age: 79 years Tech: MANN Gender: M Referring MD: MARTIR MADERA Site: [facility] Vascular Center Study performed: Lower extremity (bilateral), resting LIZANDRO, TBI,duplex US. Indication for study: Follow-up SHIP SELF DEFENSE SYSTEM MK1 OPERATOR/stent/bypass Study Quality: Good TECHNIQUE: Lower/upper extremity arteries [...] RIGHT Velocity cm/s Phasicity +--------+ + + WORKSITE WELLNESS PRACTITIONER PRX 66 monophasic +--------+ + + PFA 189 monophasic +--------+ + + SFA PRX 0 occluded +--------+ + + SFA MID 0 occluded +--------+ + + SFA DST 0 occluded +--------+ + + EMILY PRX 52 monophasic +--------+ + + EMILY DST 32 monophasic +--------+ + + SHIP SELF DEFENSE SYSTEM MK1 OPERATOR DST 28 monophasic +--------+ + + HAMLET DST 17 monophasic +--------+ + + DPA 43 monophasic +--------+ + + +--------+ + + LEFT Velocity cm/s Phasicity +--------+ + + WORKSITE WELLNESS PRACTITIONER PRX 264 multiphasic +--------+ + + WORKSITE WELLNESS PRACTITIONER DST 195 multiphasic +--------+ + + PFA 167 multiphasic +--------+ + + EMILY DST 104 multiphasic +--------+ + + SHIP SELF DEFENSE SYSTEM MK1 OPERATOR DST 86 multiphasic +--------+ + + HAMLET [...] 88 Index +-----+ +--------+ +-----+ 0.72 116 SHIP SELF DEFENSE SYSTEM MK1 OPERATOR 255 1.59 +-----+ +--------+ +-----+ 1.59 255 DPA 255 1.59 +-----+ +--------+ +-----+ 0.34 55 Digit 1 84 0.52 +-----+ +--------+ +-----+ BYPASS GRAFT Right graft type: Interpos WORKSITE WELLNESS PRACTITIONER -PFA. +---------+ + +--------+-----+ RIGHT Velocity cm/s Phasicity Stenosis Ratio +---------+ + +--------+-----+ INFLOW 66 monophasic +---------+ + +--------+-----+ PRX ANAST 62 monophasic +---------+ + +--------+-----+ PRX GRAFT 84 monophasic +---------+ + +--------+-----+ MID GRAFT 68 monophasic +---------+ + +--------+-----+ DST GRAFT 52 monophasic +---------+ + +--------+-----+ DST ANAST 66 monophasic +---------+ + +--------+-----+ OUTLFOW 63 monophasic +---------+ + +--------+-----+ Left graft type: WORKSITE WELLNESS PRACTITIONER-POP A. +---------+ + +--------+-----+ LEFT Velocity cm/s [...] theIntersocietal Accreditation Commission (IAC/Vascular),[email or web address] Report generated by [employer]. Final us Martir Madera MD Final Result [...] 09/16/2024 11:56:46 AM (Electronically Signed) Ирина Monreal HISTORY PROFESSOR CT Final Result * (ABNORMAL) CREATININE,ISTAT (09/16/2024 10:19 AM CDT) [facility] CREATININE, POCT 1.70(H) 0.57 - 1.11 mg/dL 09/16/2024 10:21 AM CDT [facility] Comment:Caution: Patients ta agusto Hydroxyurea have falsely increased iStat Creatinine results. Verify creatinine results ordering a Creatinine (60794.2) eGFR 41(L) >90 mL/min/1.7 3m2 09/16/2024 10:21 AM CDT [facility] Comment:As of 2021, eG FR is calculated by the CKD-EPI creatinine equation without race adjustment. eGFR can be influenced by muscle mass, exercise, and diet. The reported eGFR is an estimation only and is only applicable if the renal function is stable. Blood BLOOD SPECIMEN / Unknown 09/16/2024 10:19 AM CDT 09/16/2024 10:21 AM CDT us Doctor Unknown CHEMISTRY Final Result [facility] [address] [place] [address] * (ABNORMAL) CBC WITH AUTO DIFFERENTIAL (09/16/2024 10:10 AM CDT) [facility] WHITE BLOOD COUNT 9.8 4.5 - 11.0 thou/cu mm 09/16/2024 10:15 AM CDT [facility] RED BLOOD COUNT 4.07(L) 4.30 - 5.90 mil/cu mm 09/16/2024 10:15 AM [facility] HEMOGLOBIN 11.1(L) 13.5 - 17.5 g/dL 09/16/2024 10:15 AM [facility] HEMATOCRIT 36.7(L) 37.0 - 53.0 % 09/16/2024 10:15 AM [facility] MCV 90 80 - 100 fL 09/16/2024 10:15 AM [facility] MCH 27.3 26.0 - 34.0 pg 09/16/2024 10:15 AM [facility] MCHC 30.2(L) 32.0 - 36.0 g/dL 09/16/2024 10:15 AM [facility] RDW 13.5 11.5 - 15.5 % 09/16/2024 10:15 AM [facility] PLATELET COUNT 209 140 - 440 thou/cu mm 09/16/2024 10:15 AM [facility] MPV 10.6 6.5 - 11.0 fL 09/16/2024 10:15 AM [facility] % NEUT 45.1 % 09/16/2024 10:15 AM [facility] % LYMPH 39.8 % 09/16/2024 10:15 AM [facility] % MONO 10.2 % 09/16/2024 10:15 AM [facility] % EOS 4.7 % 09/16/2024 10:15 AM [facility] % BASO 0.2 % 09/16/2024 10:15 AM [facility] ABSOLUTE NEUTROPHILS 4.4 1.7 - 7.0 thou/cu mm 09/16/2024 10:15 AM [facility] ABSOLUTE LYMPHOCYTES 3.9(H) 0.9 - 2.9 thou/cu mm 09/16/2024 10:15 AM [facility] ABSOLUTE MONOCYTES 1.0(H) <0.9 thou/cu mm 09/16/2024 10:15 AM CDT [facility] ABSOLUTE EOSINOPHILS 0.5(H) <0.5 thou/cu mm 09/16/2024 10:15 AM CDT [facility] ABSOLUTE BASOPHILS 0.0 <0.3 thou/cu mm 09/16/2024 10:15 AM CDT [facility] Blood BLOOD SPECIMEN / Unknown Venipuncture / Unknown 09/16/2024 10:10 AM CDT 09/16/2024 10:10 AM CDT us Ирина Monreal HISTORY PROFESSOR HEMATOLOGY Final Result [facility] [address] [place] [address] * (ABNORMAL) IRON PLUS IRON BINDING CAP (09/16/2024 10:10 AM CDT) IRON 34(L) 61 - 157 ug/dL 09/16/2024 11:34 PM CDT [facility] UIBC (UNSATURATED) 388(H) 112 - 347 ug/dL 09/16/2024 11:34 PM CDT [facility] IRON BINDING CAPACITY 422(H) 250 - 400 ug/dL 09/16/2024 11:34 PM CDT [facility] IRON,% SATURATION 8(L) 14 - 50 % 09/16/2024 11:34 PM CDT [facility] Blood BLOOD SPECIMEN / Unknown Venipuncture / Unknown 09/16/2024 10:10 AM CDT 09/16/2024 10:10 AM CDT us Ирина Monreal NP CHEMISTRY Final Result [facility] [address] [place] [address], [place] * (ABNORMAL) IGM (09/16/2024 10:10 AM CDT) IGM 370.40(H) 35.00 - 242.00 mg/dL 09/17/2024 9:30 AM CDT [facility] Blood BLOOD SPECIMEN / Unknown Venipuncture / Unknown 09/16/2024 10:10 AM CDT 09/16/2024 10:10 AM CDT us Ирина Monreal HISTORY PROFESSOR CHEMISTRY Final Result [facility] [address] [place] [address], [place] * (ABNORMAL) PROTEIN ELP,SERUM (09/16/2024 10:10 AM CDT) ELP,ALBUMIN 4.14 3.31 - 5.31 g/dL 09/18/2024 2:02 PM CDT [facility] ELP,ALPHA 1 0.29 0.19 - 0.42 g/dL 09/18/2024 2:02 PM CDT [facility] ELP,ALPHA 2 0.66 0.44 - 1.03 g/dL 09/18/2024 2:02 PM CDT [facility] ELP,GAMMA 0.88 0.59 - 1.46 g/dL 09/18/2024 2:02 PM CDT [facility] ELP,BETA 1.03 0.52 - 1.05 g/dL 09/18/2024 2:02 PM CDT [facility] MONOCLONAL PEAK 1 0.18 <=0.00 g/dL 09/18/2024 2:02 PM CDT [facility] ELP INTERP,SERUM Interval study shows a decrease in magnitude of previously identified monoclonal peak. Previous Study: 0.27 gm/dL on 03/11/2024. Interpreted and electronically signed by: Odalis Leal MD 09/18/2024 2:02 PM CDT [facility] PROTEIN,TOTAL 7.0 6.0 - 8.0 g/dL 09/18/2024 2:02 PM CDT [facility] Blood BLOOD SPECIMEN / Unknown Venipuncture / Unknown 09/16/2024 10:10 AM CDT 09/16/2024 10:10 AM CDT us Ирина Vidalesy HISTORY PROFESSOR CHEMISTRY Final Result Performing Organization Address City/[facility]/ZIP Co de Phone Number [facility] [address] [place] [address], [place] * (ABNORMAL) FERRITIN (09/16/2024 10:10 AM CDT) Pathologist [facility] FERRITIN 11.9(L) 30.0 - 400.0 ng/mL 09/16/2024 11:34 PM CDT [facility] Blood BLOOD SPECIMEN / Unknown Venipuncture / Unknown 09/16/2024 10:10 AM CDT 09/16/2024 10:10 AM CDT us Ирина Vidalesy HISTORY PROFESSOR CHEMISTRY Final Result Performing Organization Address [facility] Phone Number [facility] [address] [place] [address], [place] * (ABNORMAL) COMP METABOLIC PANEL (09/16/2024 10:10 AM CDT) Pathologist [facility] SODIUM 136 136 - 145 mmol/L 09/16/2024 10:46 AM [facility] POTASSIUM 4.6 3.5 - 5.1 mmol/L 09/16/2024 10:46 AM [facility] CHLORIDE 105 98 - 107 mmol/L 09/16/2024 10:46 AM [facility] CO2,TOTAL 24 22 - 29 mmol/L 09/16/2024 10:46 AM [facility] ANION GAP 7 5 - 18 09/16/2024 10:46 AM [facility] GLUCOSE 123(H) 70 - 99 mg/dL 09/16/2024 10:46 AM [facility] CALCIUM 10.5(H) 8.8 - 10.4 mg/dL 09/16/2024 10:46 AM [facility] Comment: Reference ranges for this test were updated on 04/09/2024 to reflect our healthy population more accurately. Reference range changes are not retroactively applied to results, but previous results using the same methodology can be interpreted in the context of the new reference range. BUN 29(H) 8 - 23 mg/dL 09/16/2024 10:46 AM [facility] CREATININE 1.59(H) 0.70 - 1.20 mg/dL 09/16/2024 10:46 AM [facility] BUN/CREAT RATIO 18 10 - 20 10:46 AM [facility] eGFR 44(L) >90 mL/min/1. 73m2 09/16/2024 10:46 AM [facility] Comment:As of 2021, eG FR is calculated by the CKD-EPI creatinine equation without race adjustment. eGFR can be influenced by muscle mass, exercise, and diet. The reported eGFR is an estimation only and is only applicable if the renal function is stable. ALBUMIN 4.6 4.0 - 4.9 g/dL 09/16/2024 10:46 AM [facility] PROTEIN,TOTAL 7.2 6.0 - 8.0 g/dL 09/16/2024 10:46 AM [facility] BILIRUBIN,TOTAL 1.1 0.0 - 1.2 mg/dL 09/16/2024 10:46 AM [facility] ALK PHOSPHATASE 69 40 - 129 IU/L 09/16/2024 10:46 AM [facility] ALT (SGPT) 20 10 - 50 IU/L 09/16/2024 10:46 AM [facility] AST (SGOT) 22 10 - 50 IU/L 09/16/2024 10:46 AM [facility] Blood BLOOD SPECIMEN / Unknown Venipuncture / Unknown 09/16/2024 10:10 AM CDT 09/16/2024 10:10 AM [facility] - 09/16/2024 10:46 AM CDT Na performed on GEM Ирина Monreal NP CHEMISTRY Final Result [facility] [address] [place] [address] * ANTI HCV (06/24/2013 4:09 PM SURGICAL GARMENT ASSEMBLER) ANTI HCV Non-reacti ve [facility] Blood specimen (specimen) BLOOD SPECIMEN / Unknown 06/24/2013 4:09 PM SURGICAL GARMENT ASSEMBLER 06/24/2013 3:57 PM SURGICAL GARMENT ASSEMBLER us Meng Madera MD SEND OUTS Final Res ult [facility] INTERNAL ZIP [phone] [place] [address] from Last 3 Months or Most Recently Relevant to Health Maintenance Insurance MEDICARE PB ONLY FOR LIFE MEDICARE PART B HB ONLY MEDICARE PART A HB ONLY [facility] MEDICARE PART A HB ONLY MEDICARE PART B HB ONLY Advance Directives Documents on File Type Date Recorded Patient Pharmacologist Reba FONSECA 05/03/2019 11:01 AM 04/25/20 19 * Full [...] Preferences, Provider to review later Care Teams Spaghetti Machine Operator Relationship Specialty Start Date End Date Satish Issa MD [address] [place] [address] PCP - General 09/26/05 Lucinda Toure MD [address] [place] [address] Oncology Hematology and Oncology 03/03/20 Ирина Monreal, HISTORY PROFESSOR [address] [place] [address] Oncology Nurse Practitioner - Family 03/03/20 Maria De Jesus Adorno, RN, BSN [address] [place] [address] Nurse Navigator - Oncology Registered Nurse 04/14/23 Mundo Rodarte MD [address] [address] Surgery - Cardiothoracic 04/20/23
== END 2024-11-29 07:40 | disposition home or self-care (01) ==
PROVIDERS: PCP Chiropractor; Visit Provider Chiropractor
DX: I25.9 Chronic ischemic heart disease, unspecified (principal); I35.1 Nonrheumatic aortic (valve) insufficiency; I34.0 Nonrheumatic mitral (valve) insufficiency; I07.1 Rheumatic tricuspid insufficiency
CPT/HCPCS: 36415; 80053; 93306